=== PATIENT | female | born 1960 | race Caucasian/White ===

== ENCOUNTER 2020-03-24 11:06 | Outpatient (REF) | payer BC, SELFPAY ==
--- NOTE | 2020-03-24 | XR_ITS ---
EXAMINATION: XR CHEST 2 VIEWS CLINICAL INFORMATION: Chest pain, physical. COMPARISON: None. TECHNIQUE: PA and lateral radiographs of the chest were obtained. FINDINGS: No focal consolidation, pulmonary edema, or pleural effusion. The cardiomediastinal silhouette is normal. IMPRESSION: No acute cardiopulmonary disease.
[2020-03-24 11:58] LABS: MANUAL DIFF FLAG NO
[2020-03-24 12:01] LABS: Basophils Percent Auto 0.3 % (0-2); Eosinophils Absolute Auto 0.1 X10*3/uL (0.0-0.4); Eosinophils Percent Auto 0.7 % (0-4); Hematocrit 40.7 % (37-47); Hemoglobin 13.7 g/dl (12.0-16.0); Imm Gran Abs Auto 0.01 X10*3/uL (0.00-0.03); Imm Gran Pct Auto 0.1 % (0.0-0.4); Lymphocytes Absolute Auto 2.1 X10*3/uL (1.2-4.9); Lymphocytes Percent Auto 29.3 % (20-40); Mean Corpuscular HGB Conc 33.7 g/dl (31.0-35.0); Mean Corpuscular Hemoglobin 30.3 pg (27.0-33.0); Mean Platelet Volume 9.8 fL (9.4-12.3); Monocytes Absolute Auto 0.4 X10*3/uL (0.1-1.2); Monocytes Percent Auto 5.4 % (2-11); Neutrophils Absolute Auto 4.5 X10*3/uL (2.0-8.3); Neutrophils Percent Auto 64.2 % (45-73); Platelet Count 197 X10*3/uL (160-400); Red Blood Count 4.52 X10*6/uL (4.20-5.50); Red Cell Distribution Width 12.1 % (11.0-16.0)
[2020-03-24 12:28] LABS: Glucose Urine UA NEG (NEG); Leukocyte Esterase Urine NEG (NEG); Nitrite Urine NEG (NEG); PH 5.5 (5.0-8.0); Specific Gravity - Urine <= 1.005 (1.005-1.025); Urine Blood 2+ (NEG); Urine Ketones NEG (NEG); Urine Protein NEG (NEG-TRACE)
[2020-03-24 12:30] LABS: Appearance Urine CLEAR; Color Urine YELLOW
[2020-03-24 12:34] LABS: Squamous Epithelial Cell Urine TRACE /LPF; WBC Urine 0-2 /HPF (0-4)
--- NOTE | 2020-03-24 12:35 | XR_ITS ---
EXAMINATION: CHEST X-RAY CLINICAL INFORMATION: Chest pain COMPARISON: None TECHNIQUE: Two-view chest FINDINGS: The cardiac and mediastinal contours are normal. The lungs appear well inflated suggestive of COPD. The lungs are clear. There is no pleural effusion or pneumothorax. There is curvature of the thoracic spine to the right and degenerative change. IMPRESSION: Well-inflated lungs suggestive of COPD. No evidence for acute disease in the chest.
[2020-03-24 12:40] LABS: Alanine Aminotransferase 20 U/L (0-31); Albumin Level 4.6 g/dL (3.5-5.0); Alkaline Phosphatase 79 U/L (39-117); Anion Gap 11 (12-20); Aspartate Amino Transferase 31 U/L (5-31); Bilirubin Total 0.7 mg/dL (0.0-1.0); Blood Urea Nitrogen 12 mg/dL (9-16); Calcium 9.6 mg/dL (8.4-10.2); Carbon Dioxide 29 mmol/L (22-29); Chloride 106 mmol/L (96-108); Cholesterol 237 mg/dL; Estimated Glomerular Filt Rate > 60; Glucose Random 92 mg/dL (60-115); HDL Cholesterol 54 mg/dL; LDL Cholesterol Calculated 156 mg/dl; Potassium 5.2 mmol/l (3.3-5.1); Sodium 141 mmol/L (135-145); Total Protein 7.5 g/dL (6.5-8.0); Triglycerides 136 mg/dL
[2020-03-24 12:59] LABS: Thyroid Stimulating Hormone 1.85 mIU/mL (0.32-4.0)
== END 2020-03-24 11:07 | disposition home or self-care (01) ==
LOC: HO.LAB 11:06
PROVIDERS: PCP Internal Medicine; Visit Provider Internal Medicine
DX: R07.9 Chest pain, unspecified (principal); Z00.00 Encounter for general adult medical examination without abnormal findings; E78.00 Pure hypercholesterolemia, unspecified; G43.909 Migraine, unspecified, not intractable, without status migrainosus; N02.9 Recurrent and persistent hematuria with unspecified morphologic changes
CPT/HCPCS: 36415; 71046; 80053; 80061; 81001; 84443; 85025

== ENCOUNTER 2020-04-14 10:49 | Outpatient (REF) | payer BC, SELFPAY ==
--- NOTE | 2020-04-14 10:57 | US_ITS ---
EXAMINATION: US BREAST, BILATERAL CLINICAL INFORMATION: Heterogenously dense fibroglandular tissue. Bilateral breast ultrasound. COMPARISON: March 24, 2019 MAMMOGRAPHY: Previous mammogram dated August 31, 2019 was reviewed on a nondiagnostic monitor. TECHNIQUE: High-resolution grayscale sonography of the breasts was performed by a technologist with a high-frequency linear transducer following a standardized protocol. All 4 quadrants and the axilla were examined on each side. The retroareolar region was examined bilaterally FINDINGS: On the images submitted for review, no suspicious mass, area of architectural distortion, complex cyst or other sonographically suspicious lesion is identified in either breast. US/US breast RT complete IMPRESSION: No sonographic evidence of malignancy in either breast. ASSESSMENT: Right breast: BI-RADS 1 - negative.. Left breast: BI-RADS 1 - negative. RECOMMENDATIONS: Continue mammographic screening. This patient?s information was entered in to a reminder system with a target due date for their next mammogram.
--- NOTE | 2020-04-14 10:57 | US_ITS ---
EXAMINATION: US BREAST, BILATERAL CLINICAL INFORMATION: Heterogenously dense fibroglandular tissue. Bilateral breast ultrasound. COMPARISON: March 24, 2019 MAMMOGRAPHY: Previous mammogram dated August 31, 2019 was reviewed on a nondiagnostic monitor. TECHNIQUE: High-resolution grayscale sonography of the breasts was performed by a technologist with a high-frequency linear transducer following a standardized protocol. All 4 quadrants and the axilla were examined on each side. The retroareolar region was examined bilaterally FINDINGS: On the images submitted for review, no suspicious mass, area of architectural distortion, complex cyst or other sonographically suspicious lesion is identified in either breast. US/US breast LT complete IMPRESSION: No sonographic evidence of malignancy in either breast. ASSESSMENT: Right breast: BI-RADS 1 - negative.. Left breast: BI-RADS 1 - negative. RECOMMENDATIONS: Continue mammographic screening. This patient?s information was entered in to a reminder system with a target due date for their next mammogram.
== END 2020-04-14 10:50 | disposition home or self-care (01) ==
LOC: HO.MAMMO 10:49
PROVIDERS: PCP Internal Medicine; Visit Provider Obstetrics & Gynecology Obstetrics
DX: R92.2 Inconclusive mammogram (principal)
CPT/HCPCS: 76641

== ENCOUNTER → 2020-04-22 11:18 | Outpatient (REF) | payer BC, SELFPAY ==
--- NOTE | 2020-04-22 11:20 | ECG_ITS ---
Test Reason : UNSPEC CHEST PAIN Blood Pressure : / mmHG Vent. Rate : 071 BPM Atrial Rate : 071 BPM P-R Int : 132 ms QRS Dur : 084 ms QT Int : 374 ms P-R-T Axes : 054 067 058 degrees QTc Int : 406 ms Normal sinus rhythm Possible Early repolarization Otherwise normal ECG When compared with ECG of 27-JUN-2018 12:30, No significant change was found Referred By: Samy Toth Electronically Signed By:JOHANA GREEN MD
== END ==
LOC: HO.CARD 11:18
PROVIDERS: PCP Internal Medicine; Visit Provider Internal Medicine
DX: R07.9 Chest pain, unspecified (principal)
CPT/HCPCS: 93005

== ENCOUNTER → 2020-05-25 10:50 | Outpatient (BNVA) | payer BC, SELFPAY | PROVIDERS: PCP Internal Medicine; Referring Provider Internal Medicine; Visit Provider Urology | DX: Z76.89 Persons encountering health services in other specified circumstances (principal) ==

== ENCOUNTER 2020-09-05 08:47 | Outpatient (REF) | payer BC, SELFPAY ==
--- NOTE | ~2020-09-05 | MM_ITS ---
EXAMINATION: MM SCREENING DIGITAL BREAST TOMOSYNTHESIS, BILATERAL CLINICAL INFORMATION: Screening. Asymptomatic. The lifetime risk of breast cancer based on the Tyrer-Cuzick Model is 12%. COMPARISON: Mammography: 08/31/2019, 08/25/2018, 08/22/2017 TECHNIQUE: Digital breast tomosynthesis is performed in both the craniocaudal and mediolateral oblique views along with computer-aided detection (CAD). Synthesized 2D images are generated from the tomosynthesis. FINDINGS: The breasts are heterogeneously dense, which may obscure small masses (ACR BI-RADS breast composition Category c). There are no significant masses, abnormal calcifications, or other abnormalities. Parenchymal pattern is similar to prior studies. No significant changes. MM/MM tomosynthesis screening BI IMPRESSION: No mammographic evidence of malignancy. ASSESSMENT: BI-RADS 1: Negative RECOMMENDATION: Routine annual mammography screening. This patient's information was entered into a reminder system with a target due date for their next mammogram.
== END 2020-09-05 08:48 | disposition home or self-care (01) ==
LOC: HO.MAMMO 08:47
PROVIDERS: PCP Internal Medicine; Visit Provider Obstetrics & Gynecology Obstetrics
DX: Z12.31 Encounter for screening mammogram for malignant neoplasm of breast (principal)
CPT/HCPCS: 77063; 77067

== ENCOUNTER 2020-10-08 10:05 | Outpatient (REF) | payer BC, SELFPAY ==
--- NOTE | ~2020-10-08 | XR_ITS ---
EXAMINATION: XR CHEST CLINICAL INFORMATION: Chest pain COMPARISON: None TECHNIQUE: 2 views of the chest were obtained. FINDINGS: The lungs are well-expanded and clear of acute process. The heart size and pulmonary vascularity is normal. Mild dextro scoliosis of dorsal spine. No lytic process seen. XR/XR chest 2V IMPRESSION: Hyperinflated lungs without acute process.
== END 2020-10-08 10:06 | disposition home or self-care (01) ==
LOC: HO.XRAY 10:05
PROVIDERS: PCP Internal Medicine; Visit Provider Internal Medicine
DX: R07.9 Chest pain, unspecified (principal)
CPT/HCPCS: 71046

== ENCOUNTER 2020-11-01 09:34 | Outpatient (REF) | payer BC, SELFPAY ==
[2020-11-01 12:23] LABS: Alanine Aminotransferase 35 U/L (0-31); Albumin Level 4.2 g/dL (3.5-5.0); Alkaline Phosphatase 80 U/L (39-117); Anion Gap 13 (12-20); Aspartate Amino Transferase 35 U/L (5-31); Blood Urea Nitrogen 11 mg/dL (9-16); Calcium 9.1 mg/dL (8.4-10.2); Carbon Dioxide 28 mmol/L (22-29); Chloride 103 mmol/L (96-108); Cholesterol 178 mg/dL; Estimated Glomerular Filt Rate > 60; Glucose Random 88 mg/dL (60-115); HDL Cholesterol 39 mg/dL; LDL Cholesterol Calculated 119 mg/dl; Potassium 4.1 mmol/L (3.3-5.1); Sodium 140 mmol/L (135-145); Total Protein 6.6 g/dL (6.5-8.0); Triglycerides 103 mg/dL
== END 2020-11-01 09:35 | disposition home or self-care (01) ==
LOC: HO.WFDLDS 09:34
PROVIDERS: Visit Provider Internal Medicine
DX: Z00.00 Encounter for general adult medical examination without abnormal findings (principal); R07.9 Chest pain, unspecified; N02.9 Recurrent and persistent hematuria with unspecified morphologic changes; E78.00 Pure hypercholesterolemia, unspecified; G43.909 Migraine, unspecified, not intractable, without status migrainosus
CPT/HCPCS: 36415; 80053; 80061

== ENCOUNTER 2021-04-13 10:13 | Outpatient (REF) | payer BC, SELFPAY ==
[2021-04-13 10:26] LABS: MANUAL DIFF FLAG NO; Urine Cytology See Pathology rpt
[2021-04-13 10:53] LABS: Basophils Percent Auto 0.4 % (0-2); Eosinophils Absolute Auto 0.1 X10*3/uL (0.0-0.4); Eosinophils Percent Auto 1.3 % (0-4); Hemoglobin 13.6 g/dl (12.0-16.0); Imm Gran Abs Auto 0.01 X10*3/uL (0.00-0.03); Imm Gran Pct Auto 0.2 % (0.0-0.4); Lymphocytes Absolute Auto 1.3 X10*3/uL (1.2-4.9); Lymphocytes Percent Auto 28.6 % (20-40); Mean Corpuscular Hemoglobin 30.7 pg (27.0-33.0); Mean Corpuscular Volume 90.3 fL (80-98); Mean Platelet Volume 10.1 fL (9.4-12.3); Monocytes Absolute Auto 0.3 X10*3/uL (0.1-1.2); Monocytes Percent Auto 5.6 % (2-11); Neutrophils Percent Auto 63.9 % (45-73); Platelet Count 205 X10*3/uL (160-400); Red Blood Count 4.43 X10*6/uL (4.20-5.50); Red Cell Distribution Width 11.9 % (11.0-16.0); White Blood Count 4.6 X10*3/uL (4.8-10.8)
[2021-04-13 11:16] LABS: Appearance Urine HAZY; Color Urine YELLOW; Glucose Urine UA NEG (NEG); Leukocyte Esterase Urine TRACE (NEG); Nitrite Urine NEG (NEG); PH 5.5 (5.0-8.0); Specific Gravity - Urine >= 1.030 (1.005-1.025); Urine Blood 2+ (NEG); Urine Ketones NEG (NEG); Urine Protein NEG (NEG-TRACE)
[2021-04-13 11:20] LABS: Alanine Aminotransferase 29 U/L (0-31); Albumin Level 4.5 g/dL (3.5-5.0); Alkaline Phosphatase 99 U/L (39-117); Anion Gap 10 (12-20); Aspartate Amino Transferase 32 U/L (5-31); Bilirubin Total 0.8 mg/dL (0.0-1.0); Blood Urea Nitrogen 14 mg/dL (9-16); Calcium 9.8 mg/dL (8.4-10.2); Carbon Dioxide 30 mmol/L (22-29); Chloride 104 mmol/L (96-108); Cholesterol 202 mg/dL; Estimated Glomerular Filt Rate > 60; Glucose Random 91 mg/dL (60-115); HDL Cholesterol 43 mg/dL; LDL Cholesterol Calculated 135 mg/dl; Potassium 4.6 mmol/L (3.3-5.1); Sodium 139 mmol/L (135-145); Total Protein 7.3 g/dL (6.5-8.0); Triglycerides 122 mg/dL
[2021-04-13 11:45] LABS: Free T4 (Free Thyroxine) 1.12 ng/dL (0.71-1.85); Thyroid Stimulating Hormone 1.85 uIU/mL (0.32-4.0); Vitamin D 25-OH Total 49.9 ng/mL (>30)
[2021-04-13 11:58] LABS: Folate > 20.0 ng/mL (> or = 4.0); Vitamin B12 923 pg/mL (200-900)
[2021-04-13 12:19] LABS: Mucus Urine 3+ /LPF; Squamous Epithelial Cell Urine 1+ /LPF
== END 2021-04-13 10:14 | disposition home or self-care (01) ==
LOC: HO.LAB 10:13
PROVIDERS: PCP Internal Medicine; Visit Provider Internal Medicine
DX: E78.00 Pure hypercholesterolemia, unspecified (principal); R31.29 Other microscopic hematuria
CPT/HCPCS: 36415; 80053; 80061; 81001; 82306; 82607; 82746; 84439; 84443; 85025; 88112

== ENCOUNTER 2021-05-03 09:29 | Outpatient (REF) | payer BC, SELFPAY ==
--- NOTE | ~2021-05-03 | US_ITS ---
EXAMINATION: US BREAST, right CLINICAL INFORMATION: Heterogenously dense fibroglandular tissue. Right breast ultrasound. COMPARISON: April 14, 2020 and March 24, 2019 MAMMOGRAPHY: Previous mammogram dated September 05, 2020 was reviewed on a nondiagnostic monitor. TECHNIQUE: High-resolution grayscale sonography of the breasts was performed by a technologist with a high-frequency linear transducer following a standardized protocol. All 4 quadrants and the axilla were examined. The retroareolar region was examined. FINDINGS: On the images submitted for review, no suspicious mass, area of architectural distortion, complex cyst or other sonographically suspicious lesion is identified. US/US breast RT complete IMPRESSION: No sonographic evidence of malignancy in the right breast. ASSESSMENT: Right breast: BI-RADS 1 - negative.. RECOMMENDATIONS: Continue mammographic screening. This patient?s information was entered in to a reminder system with a target due date for their next mammogram.
--- NOTE | ~2021-05-03 | US_ITS ---
EXAMINATION: US BREAST, left CLINICAL INFORMATION: Heterogenously dense fibroglandular tissue. Left breast ultrasound. COMPARISON: April 14, 2020 and March 24, 2019 MAMMOGRAPHY: Previous mammogram dated September 05, 2020 was reviewed on a nondiagnostic monitor. TECHNIQUE: High-resolution grayscale sonography of the breasts was performed by a technologist with a high-frequency linear transducer following a standardized protocol. All 4 quadrants and the axilla were examined. The retroareolar region was examined. FINDINGS: On the images submitted for review, no suspicious mass, area of architectural distortion, complex cyst or other sonographically suspicious lesion is identified. US/US breast LT complete IMPRESSION: No sonographic evidence of malignancy in the left breast. ASSESSMENT: Left breast: BI-RADS 1 - negative. RECOMMENDATIONS: Continue mammographic screening. This patient?s information was entered in to a reminder system with a target due date for their next mammogram.
--- NOTE | ~2021-05-03 | MM_ITS ---
EXAMINATION: BONE DENSITOMETRY CLINICAL INDICATION: Other specified disorders of bone density and structure. COMPARISON: Previous BD dated 03/24/2019 and baseline BD dated 10/28/2014. TECHNIQUE: Using a [employer] DXA System (software version: 13.1) manufactured by [employer], dual-energy x-ray absorptiometry was performed of the lumbar spine and left hip. The images are of good technical quality. Summary results are attached. FINDINGS: AP SPINE L1-L4: Current: BMD 0.876 g/cm2, Z-score -1.2, T-score -2.5, osteoporosis, 2.6% decrease from previous, 14.3% decrease from baseline (<5% change is not significant). Prior: BMD 0.899 g/cm2. Baseline: BMD 1.022 g/cm2. LEFT FEMUR, NECK: Current: BMD 0.813 g/cm2, Z-score -0.3, T-score -1.6, osteopenia. Prior: BMD 0.875 g/cm2. Baseline: BMD 0.925 g/cm2. LEFT FEMUR, TOTAL: Current: BMD 0.774 g/cm2, Z-score -0.8, T-score -1.9, osteopenia, 5.5% decrease from previous, 12.1% decrease from baseline (<5% change is not significant). Prior: BMD 0.819 g/cm2. Baseline: BMD 0.881 g/cm2. IDENTIFIED RISK FACTORS: Menopause, hysterectomy, bilateral oophorectomy, family history (parental hip fracture). HISTORY OF FRACTURE: None listed. MEDICATIONS: Multivitamin. MM/XR DEXA axial skeleton IMPRESSION: 1. DIAGNOSIS: Osteoporosis based on the lowest T-score value of -2.5 in the lumbar spine applying World Health Organization criteria. 2. 10-YEAR FRACTURE RISK PREDICTION, FRAX: Major osteoporotic fracture (clinical spine, forearm, hip or shoulder) 14.1%. Hip fracture 0.8%. 3. Treatment Recommendations: NOF guidelines recommend consideration for treatment in postmenopausal women and men age 50 and older presenting with the following: -A hip or vertebral (clinical or morphometric) fracture. -T-score less than or equal to -2.5 at the femoral neck or spine after appropriate evaluation to exclude secondary causes. -Low bone mass at the hip or spine and a 10-year fracture probability by FRAX of greater than or equal to 3% for hip fracture or greater than or equal to 20% for major osteoporotic fracture based on the [place] adapted WHO algorithm. 4. Other Recommendations: All treatment decisions require clinical judgment and consideration of individual patient factors, including patient preferences, comorbidities, previous drug use, risk factors not captured in the FRAX model (e.g. frailty, falls, vitamin D deficiency, increased bone turnover, interval significant decline in bone density) and possible under or overestimation of fracture risk by FRAX. Additional medical evaluation for secondary cause of low bone mineral density may be appropriate. FUTURE SCAN RECOMMENDATION: People with diagnosed cases of osteoporosis or at high risk for fracture should have regular bone mineral density tests. For patients eligible for Medicare, routine testing is allowed once every 2 years. The testing frequency can be increased to one year for patients who have rapidly progressing disease, those who are receiving or discontinuing medical therapy to restore bone mass, or have additional risk factors.
== END 2021-05-03 09:30 | disposition home or self-care (01) ==
LOC: HO.MAMMO 09:29
PROVIDERS: Absent Provider Obstetrics & Gynecology; PCP Internal Medicine; Visit Provider Internal Medicine
DX: Z13.820 Encounter for screening for osteoporosis (principal); R92.2 Inconclusive mammogram; M85.80 Other specified disorders of bone density and structure, unspecified site; Z78.0 Asymptomatic menopausal state; Z98.890 Other specified postprocedural states; Z90.722 Acquired absence of ovaries, bilateral; Z79.899 Other long term (current) drug therapy
CPT/HCPCS: 76641; 77080

== ENCOUNTER 2021-09-06 08:57 | Outpatient (REF) | payer BC, SELFPAY ==
--- NOTE | ~2021-09-06 | MM_ITS ---
EXAMINATION: MM SCREENING DIGITAL BREAST TOMOSYNTHESIS, BILATERAL CLINICAL INFORMATION: Screening. Asymptomatic. The lifetime risk of breast cancer based on the Tyrer-Cuzick Model is 13%. COMPARISON: Mammography: 09/05/2020, 08/31/2019, 08/25/2018 TECHNIQUE: Digital breast tomosynthesis is performed in both the craniocaudal and mediolateral oblique views along with computer-aided detection (CAD). Synthesized 2D images are generated from the tomosynthesis. FINDINGS: The breasts are heterogeneously dense, which may obscure small masses (ACR BI-RADS breast composition Category c). There are no significant masses, abnormal calcifications, or other abnormalities. Parenchymal pattern is similar to prior studies. There is no developing density or architectural abnormality. The axilla and skin contours are unremarkable. No significant changes. MM/MM tomosynthesis screening BI IMPRESSION: No mammographic evidence of malignancy. ASSESSMENT: BI-RADS 1: Negative RECOMMENDATION: Routine annual mammography screening. This patient's information was entered into a reminder system with a target due date for their next mammogram.
== END 2021-09-06 08:58 | disposition home or self-care (01) ==
LOC: HO.MAMMO 08:57
PROVIDERS: PCP Internal Medicine; Visit Provider Obstetrics & Gynecology Obstetrics
DX: Z12.31 Encounter for screening mammogram for malignant neoplasm of breast (principal)
CPT/HCPCS: 77063; 77067

== ENCOUNTER 2022-02-16 09:19 | Outpatient (REF) | payer BC, SELFPAY ==
[2022-02-16 11:21] LABS: MANUAL DIFF FLAG NO
[2022-02-16 11:37] LABS: Basophils Percent Auto 0.4 % (0-2); Eosinophils Absolute Auto 0.1 X10*3/uL (0.0-0.4); Eosinophils Percent Auto 1.1 % (0-4); Hemoglobin 13.9 g/dl (12.0-16.0); Imm Gran Abs Auto 0.01 X10*3/uL (0.00-0.03); Imm Gran Pct Auto 0.2 % (0.0-0.4); Lymphocytes Absolute Auto 1.5 X10*3/uL (1.2-4.9); Lymphocytes Percent Auto 31.1 % (20-40); Mean Corpuscular HGB Conc 33.9 g/dl (31.0-35.0); Mean Corpuscular Volume 88.6 fL (80.0-98.0); Mean Platelet Volume 10.5 fL (9.4-12.3); Monocytes Absolute Auto 0.3 X10*3/uL (0.1-1.2); Monocytes Percent Auto 5.5 % (2-11); Neutrophils Absolute Auto 2.9 x10*3/uL (2.0-8.3); Neutrophils Percent Auto 61.7 % (45-73); Platelet Count 191 X10*3/uL (160-400); Red Blood Count 4.63 X10*6/uL (4.20-5.50); White Blood Count 4.7 X10*3/uL (4.8-10.8)
[2022-02-16 12:29] LABS: Folate > 20.0 ng/mL (> or = 4.0); Vitamin B12 693 pg/mL (200-900)
[2022-02-16 12:39] LABS: Alanine Aminotransferase 17 U/L (0-31); Albumin Level 4.4 g/dL (3.5-5.0); Alkaline Phosphatase 85 U/L (39-117); Anion Gap 14 (12-20); Aspartate Amino Transferase 25 U/L (5-31); Bilirubin Total 0.7 mg/dL (0.0-1.0); Blood Urea Nitrogen 10 mg/dL (9-16); Calcium 9.3 mg/dL (8.4-10.2); Carbon Dioxide 27 mmol/L (22-29); Chloride 106 mmol/L (96-108); Cholesterol 195 mg/dL; Estimated Glomerular Filt Rate > 60; Glucose Random 93 mg/dL (60-115); HDL Cholesterol 47 mg/dL; LDL Cholesterol Calculated 127 mg/dl; Potassium 4.2 mmol/L (3.3-5.1); Sodium 143 mmol/L (135-145); Total Protein 7.1 g/dL (6.5-8.0); Triglycerides 109 mg/dL
[2022-02-16 13:03] LABS: Free T4 (Free Thyroxine) 1.07 ng/dL (0.71-1.85); Thyroid Stimulating Hormone 2.06 uIU/mL (0.32-4.0); Vitamin D 25-OH Total 41.1 ng/mL (>30)
== END 2022-02-16 09:20 | disposition home or self-care (01) ==
LOC: HO.WFDLDS 09:19
PROVIDERS: Visit Provider Internal Medicine
DX: E78.00 Pure hypercholesterolemia, unspecified (principal)
CPT/HCPCS: 36415; 80053; 80061; 82306; 82607; 82746; 84439; 84443; 85025

== ENCOUNTER 2022-03-01 08:42 | Outpatient (REF) | payer BC, SELFPAY ==
--- NOTE | ~2022-03-01 | US_ITS ---
EXAMINATION: US RETROPERITONEAL COMPLETE (RENAL) CLINICAL INFORMATION: Left lower quadrant pain. COMPARISON: CT abdomen and pelvis 08/01/2017. X-ray abdomen KUB 06/06/2017. TECHNIQUE: Real-time imaging of the kidneys and bladder. FINDINGS: RIGHT KIDNEY: 10.4 x 3.7 x 5.3 cm (SAG x AP x TRV). The kidney is normal in size, contour, and echogenicity. Renal cortical thickness is normal. No focal parenchymal lesions or hydronephrosis. There is an echogenic stone lower pole measuring 0.2 x 0.4 x 0.2 CM LEFT KIDNEY: 11.0 x 3.5 x 5.4 cm (SAG x AP x TRV). The kidney is normal in size, contour, and echogenicity. Renal cortical thickness is normal. No calculi or focal parenchymal lesions. No hydronephrosis. There is trace upper pole caliectasis. BLADDER: Well distended and normal. Bilateral ureteral jets are demonstrated. Prevoid bladder volume is 191 mL. Postvoid bladder volume is 17 mL. US/US retroperitoneal comp IMPRESSION: Echogenic stone lower pole right kidney measuring 0.2 x 0.4 x 0.2 cm. There is no caliectasis or hydronephrosis. Minimal trace upper pole caliectasis left kidney but no echogenic calculi or hydronephrosis.
== END 2022-03-01 08:43 | disposition home or self-care (01) ==
LOC: HO.HMGCX 08:42
PROVIDERS: PCP Internal Medicine; Visit Provider Internal Medicine
DX: R10.32 Left lower quadrant pain (principal)
CPT/HCPCS: 76770

== ENCOUNTER 2022-04-20 09:30 | Outpatient (REF) | payer BC, SELFPAY ==
[2022-04-20 11:54] LABS: Appearance Urine Clear; Color Urine Yellow; Glucose Urine UA Negative (Negative); Leukocyte Esterase Urine Negative (Negative); Nitrite Urine Negative (Negative); Specific Gravity - Urine <= 1.005 (1.005-1.025); UMIC TRIGGER UA YES; Urine Blood Small (1+) (Negative); Urine Ketones Negative (Negative); Urine Protein Negative (Neg-Trace)
[2022-04-20 12:21] LABS: Bacteria Urine None Seen (None Seen); Hyaline Casts Urine 0-2 /LPF (0-2); RBC Urine 0-2 /HPF (0-2); Squamous Epithelial Cell Urine 0-2 /HPF (0-2); WBC Urine 0-5 /HPF (0-5)
[2022-04-23 21:27] LABS: Alpha 1 Anti-trypsin 136 mg/dL (83-199)
== END 2022-04-20 09:31 | disposition home or self-care (01) ==
LOC: HO.WFDLDS 09:30
PROVIDERS: Visit Provider Internal Medicine
DX: N20.0 Calculus of kidney (principal)
CPT/HCPCS: 36415; 81001; 82103

== ENCOUNTER 2022-05-30 11:36 | Outpatient (REF) | payer BC, SELFPAY ==
--- NOTE | ~2022-05-30 | US_ITS ---
EXAMINATION: US SCREENING ULTRASOUND BREAST, BILATERAL CLINICAL INFORMATION: Dense breasts on mammography. Screening ultrasound. Tyrer-Cuzick Score 13%. COMPARISON: Digital breast tomosynthesis 09/06/2021, bilateral screening breast ultrasound 05/03/2021 TECHNIQUE: Ultrasound is performed using grayscale imaging and color Doppler. Imaging is performed to include the four quadrants and retroareolar region. Both breasts are imaged. FINDINGS: Right breast: There is no suspicious finding by ultrasound. There is no cystic or solid mass or focal architectural abnormality. Left breast: There is no suspicious finding by ultrasound. There is no cystic or solid mass or focal architectural abnormality. US/US breast LT complete IMPRESSION: Normal study ASSESSMENT: BI-RADS 1: Negative RECOMMENDATION: Routine annual mammography screening. This patient's information was entered into a reminder system with a target due date for their next mammogram.
--- NOTE | ~2022-05-30 | US_ITS ---
EXAMINATION: US SCREENING ULTRASOUND BREAST, BILATERAL CLINICAL INFORMATION: Dense breasts on mammography. Screening ultrasound. Tyrer-Cuzick Score 13%. COMPARISON: Digital breast tomosynthesis 09/06/2021, bilateral screening breast ultrasound 05/03/2021 TECHNIQUE: Ultrasound is performed using grayscale imaging and color Doppler. Imaging is performed to include the four quadrants and retroareolar region. Both breasts are imaged. FINDINGS: Right breast: There is no suspicious finding by ultrasound. There is no cystic or solid mass or focal architectural abnormality. Left breast: There is no suspicious finding by ultrasound. There is no cystic or solid mass or focal architectural abnormality. US/US breast RT complete IMPRESSION: Normal study ASSESSMENT: BI-RADS 1: Negative RECOMMENDATION: Routine annual mammography screening. This patient's information was entered into a reminder system with a target due date for their next mammogram.
== END 2022-05-30 11:37 | disposition home or self-care (01) ==
LOC: HO.MAMMO 11:36
PROVIDERS: PCP Internal Medicine; Visit Provider Obstetrics & Gynecology
DX: R92.2 Inconclusive mammogram (principal); Z80.3 Family history of malignant neoplasm of breast
CPT/HCPCS: 76641

== ENCOUNTER 2022-09-07 10:15 | Outpatient (REF) | payer BC, SELFPAY ==
--- NOTE | ~2022-09-07 | MM_ITS ---
EXAMINATION: MM SCREENING DIGITAL BREAST TOMOSYNTHESIS, BILATERAL CLINICAL INFORMATION: Screening. Asymptomatic. The lifetime risk of breast cancer based on the Tyrer-Cuzick Model is 11%. COMPARISON: Mammography: 09/06/2021, 09/05/2020, 08/31/2019, bilateral screening breast ultrasound 05/30/2022, 05/03/2021 TECHNIQUE: Digital breast tomosynthesis is performed in both the craniocaudal and mediolateral oblique views along with computer-aided detection (CAD). Synthesized 2D images are generated from the tomosynthesis. FINDINGS: The breasts are heterogeneously dense, which may obscure small masses (ACR BI-RADS breast composition Category c). There are no significant masses, abnormal calcifications, or other abnormalities. Parenchymal pattern is similar to prior studies. There is no developing density or architectural abnormality. The axilla and skin contours are unremarkable. No significant changes. MM/MM tomosynthesis screening BI IMPRESSION: No mammographic evidence of malignancy. ASSESSMENT: BI-RADS 1: Negative RECOMMENDATION: Routine annual mammography screening. This patient's information was entered into a reminder system with a target due date for their next mammogram.
== END 2022-09-07 10:16 | disposition home or self-care (01) ==
LOC: HO.MAMMO 10:15
PROVIDERS: PCP Internal Medicine; Visit Provider Internal Medicine
DX: Z12.31 Encounter for screening mammogram for malignant neoplasm of breast (principal)
CPT/HCPCS: 77063; 77067

== ENCOUNTER 2022-09-19 11:18 | Outpatient (REF) | payer BC, SELFPAY ==
--- NOTE | ~2022-09-19 | US_ITS ---
EXAMINATION: US RETROPERITONEAL LIMITED (RENAL ONLY) CLINICAL INFORMATION: Calculus of kidney. COMPARISON: Ultrasound retroperitoneal complete (renal) 03/01/2022. CT abdomen and pelvis 08/01/2017. X-ray abdomen KUB 06/06/2017. TECHNIQUE: Real-time imaging of the kidneys. FINDINGS: RIGHT KIDNEY: 9.8 x 4.2 x 5.5 cm (SAG x AP x TRV). The kidney is normal in size, contour, and echogenicity. Renal cortical thickness is normal. No focal parenchymal lesions or hydronephrosis. There is an echogenic stone midpole measuring 0.24 x 0.24 x 0.20 cm and 0.19 x 0.30 x 0.28 cm. There is no caliectasis. LEFT KIDNEY: 10.3 x 5.2 x 4.7 cm (SAG x AP x TRV). The kidney is normal in size, contour, and echogenicity. Renal cortical thickness is normal. No calculi or focal parenchymal lesions. No hydronephrosis. US/US renal BI IMPRESSION: 1. Nonobstructive echogenic stones midpole right kidney. Only one echogenic calculi was seen in the mid to lower pole, right kidney, on the previous exam. 2. The left kidney is unremarkable.
== END 2022-09-19 11:19 | disposition home or self-care (01) ==
LOC: HO.HMGCX 11:18
PROVIDERS: PCP Internal Medicine; Visit Provider Internal Medicine
DX: N20.0 Calculus of kidney (principal)
CPT/HCPCS: 76775

== ENCOUNTER 2023-02-15 11:47 | Outpatient (AMB) | payer BC, SELFPAY ==
--- NOTE | 2023-02-15 11:47 | A.OFFPC_ITS ---
Intake Visit Reasons: Head Cold, tested Pos for COVID 02/05 Intake Note: 02/04 patient started with congestion, headache, sore throat but no fever and tested for COVID in the AM and PM and both test were negative. 02/05 she tested herself again and tested positive and called the office and was prescribed the Paxlovid. 02/10 she finished the antibiotics and felt fine but now it seems the symptoms are coming back. Allergies codeine [CODEINE] Allergy (Unknown, Verified 02/15/23 11:52) SEVERE HEADACHE Tobacco use date assessed: 10/18/22 Dental Screening Dental Screen Date: 02/15/23 Did you have a dental visit in the last 12 months?: Yes Did you have a dental problem in the last 6 months where you did not have access to dental care?: No Was dental information given to patient?: Patient has dentist HPI HPI Comments History of Present Illness Details 62-year-old female past medical history significant for osteoporosis, hypercholesteremia and migraines. Patient presents today for a telehealth appointment. Patient started with symptoms of sore throat, Head cold/ nasal congestion, Headache on 02/04, patient then tested positive for COVID on 02/05/2023. And patient was treated with Paxlovid finished 02/10/23. Patient initially reported that she felt like her symptoms were improving but now they seem to be returning. Patient states Saturday had rebound of her symptoms started mild intermittent headache which is relieved by Tylenol, mild nasal congestion nasal congestion and watery eyes. Patient denies sob diff breathing, reports occasional cough. [facility]LY [facility] Medical History (Updated 02/05/23 @ 17:19 by Samy Toth MD) Hypercholesterolemia Migraine Osteopenia Surgical History (Updated 02/02/22 @ 17:13 by Samy Toth MD) History of hysterectomy History of laparotomy Hx of appendectomy Family History (Updated 10/18/22 @ 09:48 by Livier Tiwari CMA) Father Diabetes Hypertension Skin cancer Mother Hypertension Skin cancer Brother No problems noted. Brother No problems noted. Social History (Updated 04/19/22 @ 10:39 by Samy Toth MD) Housing: House Alcohol intake: never Patient Tobacco Use Status: Never used Tobacco e-Cigarette/Vaping Use: Never Used service: No Current occupational status: employed Cognitive needs: No Hearing needs: No Vision needs: Yes Questionnaire PHQ-9 Over the last 2 weeks, how often have you been bothered by any of the following problems? 1. Little interest or pleasure in doing things: not at all 2. Feeling down, depressed, or hopeless: not at all 3. Trouble falling or staying asleep, or sleeping too much: not at all 4. Feeling tired or having little energy: not at all 5. Poor appetite or overeating: not at all 6. Feeling bad about yourself - or that you are a failure or have let yourself or your family down: not at all 7. Trouble concentrating on things, such as reading the newspaper or watching television: not at all 8. Moving or speaking so slowly that other people could have noticed. Or the opposite - being so fidgety or restless that you have been moving around a lot more than usual: not at all 9. Thoughts that you would be better off or of hurting yourself in some way: not at all Total score: 0 Depression Screening Interpretation: Negative Source: Developed by Drs. Alverto Begum, Flor Welch, Thang Richter and colleagues, with an educational eileen from [employer]. Thrive Questionnaire Date Thrive assessed: 10/18/22 AUDIT C Alcohol Use Questionnaire (AUDIT-C) 1. How often do you have a drink containing alcohol?: Monthly or less 2. How many drinks containing alcohol do you have on a typical day when you are drinking?: 1 or 2 3. How often do you have six or more drinks on one occasion?: Never Total Score: 1 BIGG-7 AMB Questionnaire BIGG-7 Date BIGG - 7 assessed: 10/18/22 Source: Developed by Drs. Alverto Begum, Thang Hewitt and colleagues, with an educational eileen from [employer]. Review of Systems Const Reports chills and Denies fever(s) Eyes Reports other (tearing ) ENT Reports nasal congestion, Denies sinus pain, Denies sinus pressure and Denies sore throat Card Reports no additional complaints Resp Reports no additional complaints and Reports cough (Occasional nonproductive cough. ) Physical exam (Primary Care) Vital Signs: Unable to complete physical exam,telehealth appointment. Tobacco/Smoking Status: Tobacco use Status Tobacco use date assessed 10/18/22 02/15/23 11:50 Patient Tobacco Use Status Never used Tobacco 02/15/23 11:50 e-Cigarette/Vaping Use Never Used 02/15/23 11:50 PHQ-9: PHQ-9 Score PHQ-9: Total score 0 02/15/23 11:53 Depression Screening Interpretation: Negative Thrive Assessment: Date of Thrive Assessment Date Thrive assessed 10/18/22 02/15/23 11:50 Telehealth Telehealth Location of provider rendering services: practice address Location of patient: address on file Patient Identification confirmed using: Name, : Yes Telehealth method: voice only Patient verbally consented to treatment: Yes Patient verbally consented to billing insurance company: Yes Patient informed of any privacy concerns related to visit: Yes Assessment and Plan Assessment & Plan (1) COVID-19 virus infection: Comment: 02/05/2023 Code(s): U07.1 - COVID-19 Plan: Patient reporting rebound symptoms after discontinuing Paxlovid. Patient advised to stay hydrated and rest can take [id number] Tylenol as needed for intermittent headache. Patient advised to call office or follow-up with PCP if she develops worsening sinus pain or pressure, yellow-green nasal congestion and fevers. Patient also reported fine pink itchy rash to bilateral thighs and abdomen after discontinuing Paxlovid, which was resolved by applying lotion. Patient advised to follow-up if any new or worsening rash. Patitent advised to mask for 10 days following testing positive Plan Keep scheduled follow up or follow up sooner if needed. Coding Level of Care Code Est Pt Level 3 (00461) Diagnoses COVID-19 virus infection U07.1
== END 2023-02-15 12:47 | disposition home or self-care (01) ==
PROVIDERS: PCP Internal Medicine; Visit Provider Nurse Practitioner Family
DX: U07.1 COVID-19 (principal)
CPT/HCPCS: 99213

== ENCOUNTER 2023-03-28 08:02 | Outpatient (REF) | payer BC, SELFPAY ==
[2023-03-28 10:56] LABS: MANUAL DIFF FLAG NO
[2023-03-28 11:17] LABS: Basophils Percent Auto 0.5 % (0-2); Eosinophils Absolute Auto 0.1 X10*3/uL (0.0-0.4); Eosinophils Percent Auto 1.2 % (0-4); Hematocrit 38.4 % (37.0-47.0); Hemoglobin 12.6 g/dl (12.0-16.0); Imm Gran Abs Auto 0.01 X10*3/uL (0.00-0.03); Imm Gran Pct Auto 0.2 % (0.0-0.4); Lymphocytes Absolute Auto 1.2 X10*3/uL (1.2-4.9); Mean Corpuscular HGB Conc 32.8 g/dl (31.0-35.0); Mean Corpuscular Hemoglobin 29.8 pg (27.0-33.0); Mean Corpuscular Volume 90.8 fL (80.0-98.0); Mean Platelet Volume 10.4 fL (9.4-12.3); Monocytes Absolute Auto 0.3 X10*3/uL (0.1-1.2); Neutrophils Absolute Auto 2.6 x10*3/uL (2.0-8.3); Neutrophils Percent Auto 62.1 % (45-73); Platelet Count 197 X10*3/uL (160-400); Red Blood Count 4.23 X10*6/uL (4.20-5.50); Red Cell Distribution Width 12.2 % (11.0-16.0); White Blood Count 4.2 X10*3/uL (4.8-10.8)
[2023-03-28 11:44] LABS: Alanine Aminotransferase 16 U/L (0-31); Albumin Level 4.1 g/dL (3.5-5.0); Alkaline Phosphatase 56 U/L (39-117); Anion Gap 15 (12-20); Aspartate Amino Transferase 25 U/L (5-31); Bilirubin Total 0.7 mg/dL (0.0-1.0); Blood Urea Nitrogen 12 mg/dL (9-16); Carbon Dioxide 23 mmol/L (22-29); Chloride 102 mmol/L (96-108); Cholesterol 210 mg/dL (<200); Estimated Glomerular Filt Rate > 60; Glucose Random 86 mg/dL (60-115); HDL Cholesterol 44 mg/dL (>40); LDL Cholesterol Calculated 144 mg/dL (<100); Potassium 4.2 mmol/L (3.3-5.1); Sodium 136 mmol/L (135-145); Total Protein 6.9 g/dL (6.5-8.0); Triglycerides 110 mg/dL (<150); Uric Acid 2.9 mg/dL (2.4-5.7)
[2023-03-28 11:53] LABS: Free T4 (Free Thyroxine) 1.01 ng/dL (0.71-1.85); Thyroid Stimulating Hormone 1.81 uIU/mL (0.32-4.0); Vitamin D 25-OH Total 49.3 ng/mL (>30)
== END 2023-03-28 08:03 | disposition home or self-care (01) ==
LOC: HO.WFDLDS 08:02
PROVIDERS: Visit Provider Internal Medicine
DX: E78.00 Pure hypercholesterolemia, unspecified (principal); M81.0 Age-related osteoporosis without current pathological fracture
CPT/HCPCS: 36415; 80053; 80061; 82306; 82607; 82746; 84439; 84443; 84550; 85025

== ENCOUNTER 2023-04-22 13:14 | Outpatient (AMB) | payer BC, SELFPAY ==
[2023-04-22 13:28] VITALS: BP 112/68; PULSE 78; O2SAT 100; BMI 20.5
--- NOTE | 2023-04-22 13:28 | A.OFFPC_ITS ---
Vital Signs 04/22/23 13:28 Height 5 ft 6 in Weight 127 lb 0.6 oz BMI 20.5 BP 112/68 Blood Pressure Location Lt brachial Position Sitting Pulse 78 Pulse Source Pulse Oximeter Pulse Oximetry (%) 100 Oxygen Delivery Method Room Air Intake Visit Reasons: PHYSICAL Lead C Developer Required: No Allergies codeine [CODEINE] Allergy (Unknown, Verified 04/22/23 13:29) SEVERE HEADACHE Medication List - Last Reconciled 04/22/23 by Samy Toth MD alendronate (Fosamax) 70 mg PO QWEEK 30 days aspirin 325 mg PO DAILY PRN sqdhcga-enpjerkrmjgsm-qvgfqgne 250-250-65 mg (Excedrin Migraine) 1 tab PO Q4-6H PRN cetirizine (Zyrtec) 10 mg PO DAILY coQ10 (ubiquinol) (Qunol Alireza CoQ10) 100 mg PO BID multivitamin,tx-minerals 1 tab PO DAILY Tobacco use date assessed: 04/22/23 Dental Screening Dental Screen Date: 04/22/23 Did you have a dental visit in the last 12 months?: Yes Did you have a dental problem in the last 6 months where you did not have access to dental care?: No Was dental information given to patient?: Patient has dentist HPI PHYSICAL HPI Details 62-year-old female with a history of denisa julieta, hypercholesterol E osteoporosis nephrolithiasis coming in for physical exam last seen in January 2023 regarding the COVID infection [facility] Medical History (Updated 02/05/23 @ 17:19 by Samy Toth MD) Osteopenia Hypercholesterolemia Migraine Surgical History (Updated 02/02/22 @ 17:13 by Samy Toth MD) Hx of appendectomy History of hysterectomy History of laparotomy Family History (Updated 10/18/22 @ 09:48 by Liveir Tiwari CMA) Father Diabetes Hypertension Skin cancer Mother Hypertension Skin cancer Brother No problems noted. Brother No problems noted. Social History (Updated 04/19/22 @ 10:39 by Samy Toth MD) Housing: House Alcohol intake: never Patient Tobacco Use Status: Never used Tobacco e-Cigarette/Vaping Use: Never Used service: No Current occupational status: employed Cognitive needs: No Hearing needs: No Vision needs: Yes Questionnaire PHQ-9 Over the last 2 weeks, how often have you been bothered by any of the following problems? 1. Little interest or pleasure in doing things: not at all 2. Feeling down, depressed, or hopeless: not at all 3. Trouble falling or staying asleep, or sleeping too much: not at all 4. Feeling tired or having little energy: not at all 5. Poor appetite or overeating: not at all 6. Feeling bad about yourself - or that you are a failure or have let yourself or your family down: not at all 7. Trouble concentrating on things, such as reading the newspaper or watching television: not at all 8. Moving or speaking so slowly that other people could have noticed. Or the opposite - being so fidgety or restless that you have been moving around a lot more than usual: not at all 9. Thoughts that you would be better off or of hurting yourself in some way: not at all Total score: 0 Depression Screening Interpretation: Negative Depression Screening Done: Yes Source: Developed by Drs. Alverto Begum, Flor Welch, Thang Richter and colleagues, with an educational eileen from [employer]. Thrive Questionnaire Date Thrive assessed: 10/18/22 AUDIT C Alcohol Use Questionnaire (AUDIT-C) 1. How often do you have a drink containing alcohol?: Monthly or less 2. How many drinks containing alcohol do you have on a typical day when you are drinking?: 1 or 2 3. How often do you have six or more drinks on one occasion?: Never Total Score: 1 BIGG-7 AMB Questionnaire BIGG-7 Date BIGG - 7 assessed: 04/22/23 Feeling nervous, anxious, or on edge: 0 = Not at all Not being able to stop or control worryin = Not at all Worrying too much about different things: 0 = Not at all Trouble relaxin = Not at all Being so restless that it is hard to sit still: 0 = Not at all Becoming easily annoyed or irritable: 0 = Not at all Feeling afraid as if something awful might happen: 0 = Not at all Total BIGG-7 score (0-4 normal; 5-9 mild; 10-14 moderate; 15-21 severe): 0 Source: Developed by Drs. Alverto Begum, Flor Welch, Thang Richter and colleagues, with an educational eileen from [employer]. Review of Systems Const Denies poor appetite and Denies weakness Eyes Denies no additional complaints ENT Reports Normal hearing present, Denies dizziness, Denies nasal congestion, Denies tinnitus and Denies sore throat Card Denies chest pain, Denies syncope, Denies rapid heart rate and Denies dyspnea Resp Denies cough and Denies dyspnea GI Denies change in stool character, Reports constipation, Denies diarrhea, Denies nausea and Denies vomiting Denies urinary frequency, Denies difficulty voiding and Denies dysuria Neuro Reports Normal hearing present, Denies confusion, Denies dizziness, Denies syncope and Denies weakness Psych Denies confusion Physical exam (Primary Care) Vital Signs: Last Vital Signs Pulse 78 04/22/23 13:28 BP 112/68 04/22/23 13:28 Pulse Ox 100 04/22/23 13:28 Oxygen Delivery Method Room Air 04/22/23 13:28 BMI result Body Mass Index 20.5 Tobacco/Smoking Status: Tobacco use Status Tobacco use date assessed 04/22/23 04/22/23 13:29 Patient Tobacco Use Status Never used Tobacco 04/22/23 13:29 e-Cigarette/Vaping Use Never Used 04/22/23 13:29 PHQ-9: PHQ-9 Score PHQ-9: Total score 0 04/22/23 13:45 Depression Screening Interpretation: Negative Thrive Assessment: Date of Thrive Assessment Date Thrive assessed 10/18/22 04/22/23 13:29 Const General: alert and awake; No confusion Orientation/consciousness: No confusion HENMT Head: Yes normocephalic Ears: external ears normal and TM's normal bilaterally Face and sinus: Yes normal facial exam Mouth: moist mucous membranes Throat: Yes tonsils normal Eyes Conjunctivae: conjunctivae normal Pupils: Equal, round and reactive pupils present and Pupil accommodation reflex normal Direct Ophthalmoscopy: normal light reflex Neck Neck: No lymphadenopathy Thyroid: Thyroid normal Chest Chest palpation & inspection: normal inspection of the chest Resp Effort & Inspection: normal respiratory effort and no audible wheezes Auscultation: clear to auscultation bilaterally, no crackles, no wheezes and lung sounds not diminished Cardio Rate: regular rate Rhythm: regular rhythm Peripheral pulses: radial pulses present and dorsalis pedis present GI Other: Stools guaiac negative Palpation (GI): no masses Auscultation: normal bowel sounds and normoactive bowel sounds Skin General skin exam: no rashes or lesions noted Rashes: no rashes Neuro General: deep tendon reflexes 2+ bilaterally and No confusion Cranial nerves: Yes Equal, round and reactive pupils present, Yes Midline tongue present, Yes Normal hearing present and Yes Ability to bilaterally elevate shoulders present Cognition (Neuro): normal cognition Gait exam (Neuro): Normal gait present Motor exam (neuro): 5/5 motor strength present throughout Deep tendon reflexes (DTR's): Right brachioradialis reflex intensity grade: 2+, Left brachioradialis reflex intensity grade: 2+, Right patellar reflex intensity grade: 2+ and Left patellar reflex intensity grade: 2+ Extrem General: No edema Assessment and Plan Assessment & Plan (1) Annual physical exam: Code(s): Z00.00 - Encounter for general adult medical examination without abnormal findings (2) Migraine: Code(s): G43.909 - Migraine, unspecified, not intractable, without status migrainosus Plan: Keep well hydrated eat healthy keep active, have an adequate sleep (3) Hypercholesterolemia: Code(s): E78.00 - Pure hypercholesterolemia, unspecified Plan: Avoid fried foods, chicken skin, eggs, butter margarine, pastries and meat. Be it pork or beef they have a lot of cholesterol LDL goal of less than 130 and triglyceride of less than 150 (4) Osteoporosis: Comment: April 2021 Code(s): M81.0 - Age-related osteoporosis without current pathological fracture Plan: Discussed about bone density repeat testing this year, continue with alendronate (5) Right renal stone: Comment: February right renal calculi Code(s): N20.0 - Calculus of kidney Plan: Increase oral fluids will continue to monitor for now. Orders: Orders Urine Cytology Today N20.0 - Calculus of kidney US renal BI 6 Months N20.0 - Calculus of kidney XR DEXA axial skeleton Today M81.0 - Age-related osteoporosis without current pathological fracture UA w Microscopic Today N20.0 - Calculus of kidney Referrals Urology Referral N20.0 - Calculus of kidney Coding Level of Care Code Est Pt Prev Care 40-64y(98975) Diagnoses Annual physical exam Z00.00 Migraine G43.909 Hypercholesterolemia E78.00 Osteoporosis M81.0 Right renal stone N20.0
== END 2023-04-22 14:59 | disposition home or self-care (01) ==
PROVIDERS: Visit Provider Internal Medicine
DX: Z00.00 Encounter for general adult medical examination without abnormal findings (principal); G43.909 Migraine, unspecified, not intractable, without status migrainosus; E78.00 Pure hypercholesterolemia, unspecified; M81.0 Age-related osteoporosis without current pathological fracture; N20.0 Calculus of kidney
CPT/HCPCS: 99396

== ENCOUNTER 2023-04-22 15:07 | Outpatient (REF) | payer BC, SELFPAY ==
[2023-04-22 16:47] LABS: Urine Cytology See Pathology rpt
[2023-04-23 08:58] LABS: Appearance Urine Cloudy; Color Urine Yellow; Glucose Urine UA Negative (Negative); Leukocyte Esterase Urine Negative (Negative); Nitrite Urine Negative (Negative); PH 5.5 (5.0-9.0); Specific Gravity - Urine >= 1.030 (1.005-1.025); UMIC TRIGGER UA YES; Urine Blood Small (1+) (Negative); Urine Ketones Trace mg/dL (Negative); Urine Protein Negative (Neg-Trace)
[2023-04-23 09:01] LABS: Bacteria Urine None Seen (None Seen); Hyaline Casts Urine 0-2 /LPF (0-2); RBC Urine >20 /HPF (0-2); Squamous Epithelial Cell Urine 0-2 /HPF (0-2)
== END 2023-04-22 15:08 | disposition home or self-care (01) ==
LOC: HO.LAB 15:07
PROVIDERS: PCP Internal Medicine; Visit Provider Internal Medicine
DX: N20.0 Calculus of kidney (principal)
CPT/HCPCS: 81001; 88112

== ENCOUNTER 2023-05-08 10:37 | Outpatient (REF) | payer BC, SELFPAY ==
--- NOTE | ~2023-05-08 | MM_ITS ---
EXAMINATION: BONE DENSITOMETRY CLINICAL INDICATION: Age-related osteoporosis without current pathological fracture. COMPARISON: Previous BD dated 05/03/2021 and baseline BD dated 10/28/2014. TECHNIQUE: Using a [employer] DXA System (software version: 13.1) manufactured by [employer], dual-energy x-ray absorptiometry was performed of the lumbar spine and left hip. The images are of good technical quality. Summary results are attached. FINDINGS: AP SPINE L1-L4: Current: BMD 0.788 g/cm2, Z-score -1.8, T-score -3.3, osteoporosis, 10.0% decrease from previous, 22.9% decrease from baseline (<5% change is not significant). Prior: BMD 0.876 g/cm2. Baseline: BMD 1.022 g/cm2. LEFT FEMUR, NECK: Current: BMD 0.812 g/cm2, Z-score -0.2, T-score -1.6, osteopenia. Prior: BMD 0.813 g/cm2. Baseline: BMD 0.925 g/cm2. LEFT FEMUR, TOTAL: Current: BMD 0.758 g/cm2, Z-score -0.8, T-score -2.0, osteopenia, 2.1% decrease from previous, 14.0% decrease from baseline (<5% change is not significant). Prior: BMD 0.774 g/cm2. Baseline: BMD 0.881 g/cm2. IDENTIFIED RISK FACTORS: Osteoporosis. Parental hip fracture. Menopause. Hysterectomy. Bilateral oophorectomy. HISTORY OF FRACTURE: None listed. MEDICATIONS: Bisphosphonate. MM/XR DEXA axial skeleton IMPRESSION: 1. DIAGNOSIS: Osteoporosis based on the lowest T-score value of -3.3 in the lumbar spine applying World Health Organization criteria. 2. 10-YEAR FRACTURE RISK PREDICTION, FRAX: According to the guidelines, FRAX calculation should only be performed on patients in the osteopenia bone density category.?Therefore, FRAX was not performed on this patient.? 3. Treatment Recommendations: NOF guidelines recommend consideration for treatment in postmenopausal women and men age 50 and older presenting with the following: -A hip or vertebral (clinical or morphometric) fracture. -T-score less than or equal to -2.5 at the femoral neck or spine after appropriate evaluation to exclude secondary causes. -Low bone mass at the hip or spine and a 10-year fracture probability by FRAX of greater than or equal to 3% for hip fracture or greater than or equal to 20% for major osteoporotic fracture based on the [place] adapted WHO algorithm. 4. Other Recommendations: All treatment decisions require clinical judgment and consideration of individual patient factors, including patient preferences, comorbidities, previous drug use, risk factors not captured in the FRAX model (e.g. frailty, falls, vitamin D deficiency, increased bone turnover, interval significant decline in bone density) and possible under or overestimation of fracture risk by FRAX. Additional medical evaluation for secondary cause of low bone mineral density may be appropriate. FUTURE SCAN RECOMMENDATION: People with diagnosed cases of osteoporosis or at high risk for fracture should have regular bone mineral density tests. For patients eligible for Medicare, routine testing is allowed once every 2 years. The testing frequency can be increased to one year for patients who have rapidly progressing disease, those who are receiving or discontinuing medical therapy to restore bone mass, or have additional risk factors.
== END 2023-05-08 10:38 | disposition home or self-care (01) ==
LOC: HO.MAMMO 10:37
PROVIDERS: PCP Internal Medicine; Visit Provider Internal Medicine
DX: Z13.820 Encounter for screening for osteoporosis (principal); M81.0 Age-related osteoporosis without current pathological fracture; Z78.0 Asymptomatic menopausal state
CPT/HCPCS: 77080

== ENCOUNTER 2023-06-05 08:52 | Outpatient (AMB) | payer BC, SELFPAY ==
--- NOTE | 2023-06-05 09:22 | MHC.OFFVIS ---
Intake Intake Visit Reasons: Calculus of kidney Intake Note: New Patient presents for initial visit for kidney stone Urology Medications: none Blood Thinner: aspirin General Manager Required: No Accompanied by: Self / Same As Patient Allergies codeine [CODEINE] Allergy (Unknown, Verified 06/05/23 09:52) SEVERE HEADACHE Medication List - Last Reconciled 06/05/23 by Poonam Wright, AIRCRA[employer] B[employer] REPAIRER-BC alendronate (Fosamax) 70 mg PO QWEEK 30 days ngmjmou-fijnmbbrhdwwz-zdvjliin 250-250-65 mg (Excedrin Migraine) 1 tab PO Q4-6H PRN cetirizine (Zyrtec) 10 mg PO DAILY coQ10 (ubiquinol) (Qunol Alireza CoQ10) 100 mg PO BID multivitamin,tx-minerals 1 tab PO DAILY HPI HPI Comments History of Present Illness Details Viviana Onofre is a very pleasant 63-year-old female patient of Dr. Toth. She has a past medical history of osteopenia, hypercholesteremia, and migraines. She presents to the office today as a new patient for nephrolithiasis. Discussion with the patient today she reports to be doing and feeling well. She reports early last year having experienced intermittent left-sided flank pain she had been experiencing with movement at which time on ultrasound was ordered and the patient was noted to have right-sided stones. She reports since then she had surveillance imaging earlier this year in August noting right-sided stones in discussion with her PCP recommendations were made for Urology follow-up. Renal imaging results from August reviewed with the patient today. Nonobstructive echogenic stones mid pole right kidney. The left kidney is unremarkable. She currently denies any bothersome urinary issues or concerns. She reports flank pain has since subsided. She denies urinary urgency, urinary frequency, incontinence, nocturia, hematuria, dysuria, foul smelling urine, changes to urinary stream, flank pain, fever, and or chills. She is happy with her current voiding parameters. Discussed at length potential causes of nephrolithiasis. Discussed surveillance monitoring versus further workup with CT KUB. When asked patient does report to be drinking plenty of water daily. In office urinalysis results reviewed with the patient today. She otherwise offers no other issues or concerns at this time. [facility] Medical History Osteopenia Hypercholesterolemia Migraine Surgical History Hx of appendectomy History of hysterectomy History of laparotomy Family History Father Diabetes Hypertension Skin cancer Mother Hypertension Skin cancer Brother No problems noted. Brother No problems noted. Social History Housing: House Alcohol intake: never Patient Tobacco Use Status: Never used Tobacco e-Cigarette/Vaping Use: Never Used service: No Current occupational status: employed Cognitive needs: No Hearing needs: No Vision needs: Yes Review of Systems Eyes Reports no additional complaints ENT Reports no additional complaints Card Reports as per HPI Resp Reports no additional complaints GI Reports no additional complaints Reports as per HPI Musc Reports as per HPI Neuro Reports as per HPI Psych Reports no additional complaints Endo Reports no additional complaints Efra/Lymph Reports no additional complaints Aller/Immun Reports no additional complaints Physical Exam Const General: cooperative, comfortable, no acute distress, well developed, alert and awake Orientation/consciousness: patient oriented x3 Limitations: no limitations HEENT Head: Yes normal to inspection, Yes normocephalic and Yes atraumatic Ears: hearing grossly normal bilaterally Eyes General: appearance normal, both eyes and all related structures Neck Neck: Yes normal visual inspection and Yes trachea midline Chest Chest palpation & inspection: normal inspection of the chest Resp Effort & Inspection: normal respiratory effort and able to speak in complete sentences Cardio Rate: regular rate GI Inspection: Yes normal to inspection General: Yes no CVA tenderness Back/Spine/Pelvis Back: no CVA tenderness Skin General skin exam: no rashes or lesions noted Neuro General: patient oriented x3 Extrem General: Yes normal to inspection Psych Appearance: grossly normal and well kempt Mental Status: mental status grossly normal Speech and movement: Normal speech and movement present and Clear speech present Affect: normal affect Attitude: cooperative Thought process: Normal thought process present Thought content: Normal thought content present Insight: Fair insight present (Psych) Judgement: Fair judgement present (Psych) Results AMB Urinalysis, Automated UA Leukoctes 15 Richard/uL Last Edit by Samantha Morrison on 06/05/23 09:32 UA Nitrite Negative Last Edit by Samantha Morrison on 06/05/23 09:32 UA Urobilinogen 0.2 mg/dL Last Edit by Samantha Morrison on 06/05/23 09:32 UA Protein 0 mg/dL Last Edit by Samantha Morrison on 06/05/23 09:32 UA pH 6.0 Last Edit by Samantha Morrison on 06/05/23 09:32 UA Blood 80 Hardeep/uL Last Edit by Samantha Morrison on 06/05/23 09:32 UA Specific [place] 1.000 Last Edit by Samantha Morrison on 06/05/23 09:32 UA Ketone Negative Last Edit by Samantha Morrison on 06/05/23 09:32 UA Bilirubin 0 mg/dL Last Edit by Samantha Morrison on 06/05/23 09:32 UA Glucose 0 mg/dL Last Edit by Samantha Morrison on 06/05/23 09:32 Results Reviewed Results Reviewed: Laboratory Last Values Urine pH (Auto) 6.0 06/05/23 09:24 Specific [place] (Auto) 1.000 06/05/23 09:24 Urine Protein (Auto) 0 mg/dL 06/05/23 09:24 Glucose (UA)(Auto) 0 mg/dL 06/05/23 09:24 Urine Ketones (Auto) Negative 06/05/23 09:24 Urine Blood (Auto) 80 Hardeep/uL 06/05/23 09:24 Urine Nitrite (Auto) Negative 06/05/23 09:24 Urine Bilirubin (Auto) 0 mg/dL 06/05/23 09:24 Urine Urobilinogen (Auto) 0.2 mg/dL 06/05/23 09:24 Leukocyte Esterase (Auto) 15 Richard/uL 06/05/23 09:24 Date of Service: 09/19/22 EXAMINATION: US RETROPERITONEAL LIMITED (RENAL ONLY) CLINICAL INFORMATION: Calculus of kidney. COMPARISON: Ultrasound retroperitoneal complete (renal) 03/01/2022. CT abdomen and pelvis 08/01/2017. X-ray abdomen KUB 06/06/2017. TECHNIQUE: Real-time imaging of the kidneys. FINDINGS: RIGHT KIDNEY: 9.8 x 4.2 x 5.5 cm (SAG x AP x TRV). The kidney is normal in size, contour, and echogenicity. Renal cortical thickness is normal. No focal parenchymal lesions or hydronephrosis. There is an echogenic stone midpole measuring 0.24 x 0.24 x 0.20 cm and 0.19 x 0.30 x 0.28 cm. There is no caliectasis. LEFT KIDNEY: 10.3 x 5.2 x 4.7 cm (SAG x AP x TRV). The kidney is normal in size, contour, and echogenicity. Renal cortical thickness is normal. No calculi or focal parenchymal lesions. No hydronephrosis. IMPRESSION: 1. Nonobstructive echogenic stones midpole right kidney. Only one echogenic calculi was seen in the mid to lower pole, right kidney, on the previous exam. 2. The left kidney is unremarkable. Assessment & Plan Assessment & Plan (1) Nephrolithiasis: Code(s): N20.0 - Calculus of kidney Plan In office urinalysis results reviewed with the patient today; as noted above. Most recent renal ultrasound from August reviewed with the patient today; as noted above. Discussed at length potential cause of nephrolithiasis Will obtain CT KUB for further assessment evaluation. Discussed, educated, encouraged on the importance of drinking plenty of water daily. Discussed vitamin B6 Discussed adding 1 oz of lemon juice to water daily. Follow-up in 2-4 weeks with imaging to be completed prior; or sooner with any issues, concerns, and or questions. Orders: Orders AMB Urinalysis Automated Today Z13.9 - Encounter for screening, unspecified CT kidney stone Today N20.0 - Calculus of kidney Patient Instructions: The patient had an opportunity to ask questions regarding the treatment plan. All questions were answered. Physical exam, labs, and imaging were discussed and reviewed in detail. As well as risks, benefits, and discussion of treatment choices. No major barriers to understanding were identified. The patient expressed understanding and agreement with the above treatment plan. The patient was made aware they should contact our office by phone for worsening of their current condition, the appearance of new symptoms, or with any questions or concerns. Compliance is encouraged with any medications and follow up testing that is ordered. It is a privilege to be allowed the opportunity to participate in? your urological care.? Again, if you have any questions or concerns If you have any questions or concerns please do not hesitate to contact me. The office is [phone]. This note is constructed using voice recognition software. While every effort has been made to ensure accuracy print binding and finishing worker errors may have been included. Yours sincerely, Poonam Wright AIRCRAFT BODY REPAIRER- Coding Level of Care Code New Pt Level 3 (08644) Diagnoses Nephrolithiasis N20.0
== END 2023-06-05 09:55 | disposition home or self-care (01) ==
PROVIDERS: PCP Internal Medicine; Visit Provider Nurse Practitioner Family
DX: Z13.9 Encounter for screening, unspecified (principal); N20.0 Calculus of kidney
CPT/HCPCS: 99203

== ENCOUNTER → 2023-06-05 08:52 | Outpatient (BNVA) | payer BC, SELFPAY | PROVIDERS: PCP Internal Medicine; Visit Provider Nurse Practitioner Family | DX: N20.0 Calculus of kidney (principal) | CPT/HCPCS: 81003 ==

== ENCOUNTER 2023-06-12 11:55 | Outpatient (REF) | payer BC, SELFPAY ==
--- NOTE | ~2023-06-12 | US_ITS ---
EXAMINATION: US SCREENING ULTRASOUND BREAST, BILATERAL CLINICAL INFORMATION: Dense breasts on mammography. Screening ultrasound. COMPARISON: Digital breast tomosynthesis 09/07/2022, 09/06/2021, bilateral screening breast ultrasound 09/19/2022, 05/30/2022, 05/03/2021 TECHNIQUE: Ultrasound is performed using grayscale imaging and color Doppler. Imaging is performed to include the four quadrants and retroareolar region. Both breasts are imaged. FINDINGS: Right breast: There is no suspicious finding by ultrasound. There is no cystic or solid mass or focal architectural abnormality. Left breast: There is no suspicious finding by ultrasound. There is no cystic or solid mass or focal architectural abnormality. US/US breast LT complete mammo IMPRESSION: Normal study ASSESSMENT: BI-RADS 1: Negative RECOMMENDATION: Routine annual mammography screening. This patient's information was entered into a reminder system with a target due date for their next mammogram.
--- NOTE | ~2023-06-12 | US_ITS ---
EXAMINATION: US SCREENING ULTRASOUND BREAST, BILATERAL CLINICAL INFORMATION: Dense breasts on mammography. Screening ultrasound. COMPARISON: Digital breast tomosynthesis 09/07/2022, 09/06/2021, bilateral screening breast ultrasound 09/19/2022, 05/30/2022, 05/03/2021 TECHNIQUE: Ultrasound is performed using grayscale imaging and color Doppler. Imaging is performed to include the four quadrants and retroareolar region. Both breasts are imaged. FINDINGS: Right breast: There is no suspicious finding by ultrasound. There is no cystic or solid mass or focal architectural abnormality. Left breast: There is no suspicious finding by ultrasound. There is no cystic or solid mass or focal architectural abnormality. US/US breast RT complete mammo IMPRESSION: Normal study ASSESSMENT: BI-RADS 1: Negative RECOMMENDATION: Routine annual mammography screening. This patient's information was entered into a reminder system with a target due date for their next mammogram.
== END 2023-06-12 11:56 | disposition home or self-care (01) ==
LOC: HO.MAMMO 11:55
PROVIDERS: PCP Internal Medicine; Visit Provider Obstetrics & Gynecology
DX: R92.30 Dense breasts, unspecified (principal)
CPT/HCPCS: 76641

== ENCOUNTER → 2023-06-12 12:00 | Outpatient (BNV) | payer BC, SELFPAY | PROVIDERS: PCP Internal Medicine; Visit Provider Radiology Diagnostic Radiology | DX: Z12.39 Encounter for other screening for malignant neoplasm of breast (principal) | CPT/HCPCS: 76641 ==

== ENCOUNTER 2023-06-26 07:21 | Outpatient (REF) | payer BC, SELFPAY | END 2023-06-26 07:22 | disposition home or self-care (01) | LOC: HO.CT 07:21 | PROVIDERS: PCP Internal Medicine; Visit Provider Nurse Practitioner Family | DX: N20.0 Calculus of kidney (principal) | CPT/HCPCS: 74176 ==

== ENCOUNTER 2023-07-01 09:23 | Outpatient (AMB) | payer BC, SELFPAY ==
--- NOTE | 2023-07-01 09:45 | MHC.OFFVIS ---
Intake Intake Visit Reasons: 4w/CT Intake Note: Patient presents for follow up visit for kidney stone/CT Scan (imaging 06/26/23) Urology Medications: none Blood Thinner: aspirin Bonding Supervisor Required: No Accompanied by: Self / Same As Patient Allergies codeine [CODEINE] Allergy (Unknown, Verified 07/01/23 11:20) SEVERE HEADACHE Medication List - Last Reconciled 07/01/23 by ISAIAH PastranaP-BC alendronate (Fosamax) 70 mg PO QWEEK 30 days dltsmbx-nyanubehlnhfo-edjogoql 250-250-65 mg (Excedrin Migraine) 1 tab PO Q4-6H PRN cetirizine (Zyrtec) 10 mg PO DAILY coQ10 (ubiquinol) (Qunol Alireza CoQ10) 100 mg PO BID multivitamin,tx-minerals 1 tab PO DAILY HPI HPI Comments History of Present Illness Details Viviana Onofre is a very pleasant 63-year-old female patient of Dr. Toth. She has a past medical history of osteopenia, hypercholesteremia, and migraines. She presents to the office today for follow-up. Of note, patient was seen approximately 1 month ago as a new patient for nephrolithiasis at which time a CT KUB was ordered for further assessment evaluation. These results reviewed with the patient today. The kidneys are normal in size, shape, and attenuation. No hydronephrosis, hydroureter, or calculi seen. The small echogenic foci seen in the right kidney measuring 2 and 3 mm on the prior ultrasound show no correlate on this CT scan. The echogenic foci seen on prior ultrasound studies do not appear to represent calcified nephrolithiasis. No perinephric stranding. No renal masses. The bladder is empty. She currently denies any bothersome urinary issues or concerns. In discussion with the patient today she reports to be doing and feeling well. She denies urinary urgency, urinary frequency, incontinence, nocturia, hematuria, dysuria, foul smelling urine, changes to urinary stream, flank pain, fever, and or chills. She is happy with her current voiding parameters. Discussed at length potential causes of nephrolithiasis. Discussed surveillance monitoring. When asked patient does report to be drinking plenty of water daily. In office urinalysis results reviewed with the patient today. She otherwise offers no other issues or concerns at this time. [facility] Medical History Osteopenia Hypercholesterolemia Migraine Surgical History Hx of appendectomy History of hysterectomy History of laparotomy Family History Father Diabetes Hypertension Skin cancer Mother Hypertension Skin cancer Brother No problems noted. Brother No problems noted. Social History Housing: House Alcohol intake: never Patient Tobacco Use Status: Never used Tobacco e-Cigarette/Vaping Use: Never Used service: No Current occupational status: employed Cognitive needs: No Hearing needs: No Vision needs: Yes Review of Systems Eyes Reports no additional complaints ENT Reports no additional complaints Card Reports as per HPI Resp Reports no additional complaints GI Reports no additional complaints Reports as per HPI Musc Reports as per HPI Neuro Reports as per HPI Psych Reports no additional complaints Endo Reports no additional complaints Efra/Lymph Reports no additional complaints Aller/Immun Reports no additional complaints Physical Exam Const General: cooperative, healthy appearing, comfortable, no acute distress, well developed, alert and awake Orientation/consciousness: patient oriented x3 Limitations: no limitations HEENT Head: Yes normal to inspection, Yes normocephalic and Yes atraumatic Ears: hearing grossly normal bilaterally Eyes General: appearance normal, both eyes and all related structures Neck Neck: Yes normal visual inspection and Yes trachea midline Chest Chest palpation & inspection: normal inspection of the chest Resp Effort & Inspection: normal respiratory effort and able to speak in complete sentences Cardio Rate: regular rate GI Inspection: Yes normal to inspection General: Yes no CVA tenderness Back/Spine/Pelvis Back: no CVA tenderness Skin General skin exam: no rashes or lesions noted Neuro General: patient oriented x3 Extrem General: Yes normal to inspection Psych Appearance: grossly normal and well kempt Mental Status: mental status grossly normal Speech and movement: Normal speech and movement present and Clear speech present Affect: normal affect Attitude: cooperative Thought process: Normal thought process present Thought content: Normal thought content present Insight: Fair insight present (Psych) Judgement: Fair judgement present (Psych) Results AMB Urinalysis, Automated UA Leukoctes 15 Richard/uL Last Edit by Samantha Morrison on 07/01/23 10:23 UA Nitrite Negative Last Edit by Samantha Morrison on 07/01/23 10:23 UA Urobilinogen 0.2 mg/dL Last Edit by Samantha Morrison on 07/01/23 10:23 UA Protein 0 mg/dL Last Edit by Samantha Morrison on 07/01/23 10:23 UA pH 6.0 Last Edit by Samantha Morrison on 07/01/23 10:23 UA Blood 80 Hardeep/uL Last Edit by Samantha Morrison on 07/01/23 10:23 UA Specific Marathon 1.005 Last Edit by Ronaldycsonia Morrison on 07/01/23 10:23 UA Ketone Negative Last Edit by Plynkedclifford Morrison on 07/01/23 10:23 UA Bilirubin 0 mg/dL Last Edit by Samantha Morrison on 07/01/23 10:23 UA Glucose 0 mg/dL Last Edit by Samantha Morrison on 07/01/23 10:23 Results Reviewed Results Reviewed: Laboratory Last Values Urine pH (Auto) 6.0 07/01/23 09:57 Specific Marathon (Auto) 1.005 07/01/23 09:57 Urine Protein (Auto) 0 mg/dL 07/01/23 09:57 Glucose (UA)(Auto) 0 mg/dL 07/01/23 09:57 Urine Ketones (Auto) Negative 07/01/23 09:57 Urine Blood (Auto) 80 Hardeep/uL 07/01/23 09:57 Urine Nitrite (Auto) Negative 07/01/23 09:57 Urine Bilirubin (Auto) 0 mg/dL 07/01/23 09:57 Urine Urobilinogen (Auto) 0.2 mg/dL 07/01/23 09:57 Leukocyte Esterase (Auto) 15 Richard/uL 07/01/23 09:57 Date of Service: 06/26/23 EXAMINATION: CT KIDNEY STONE FINDINGS: LUNG BASES: The visualized lung bases are unremarkable. LIVER, GALLBLADDER, AND BILIARY TREE: The liver is normal in size, shape, and attenuation. No focal hepatic lesion or biliary ductal dilatation is present. The gallbladder is unremarkable with no evidence of radiopaque gallstones, gallbladder wall thickening, or obvious pericholecystic inflammatory changes. PANCREAS: Unremarkable. SPLEEN: Unremarkable. ADRENAL GLANDS: Unremarkable. KIDNEYS AND URETERS: The kidneys are normal in size, shape, and attenuation. No hydronephrosis, hydroureter, or calculi seen. The small echogenic foci seen in the right kidney measuring 2 and 3 mm on the prior ultrasound show no correlate on this CT scan. The echogenic foci seen on prior ultrasound studies do not appear to represent calcified nephrolithiasis. No perinephric stranding. No renal masses. BLADDER: Empty and poorly evaluated. No calculi. GASTROINTESTINAL TRACT: The small and large bowel are unremarkable. The appendix is not seen but there is no evidence of appendicitis. ABDOMINAL WALL: No significant hernia is appreciated. LYMPH NODES: No retroperitoneal lymphadenopathy. VASCULAR: Unremarkable. PELVIC VISCERA: The uterus is not seen. An abnormal adnexal mass is not detected. No free intraperitoneal fluid is present. OSSEOUS STRUCTURES: Mild degenerative changes are present in the lumbar spine from L2 through S1. No bony destructive lesions. IMPRESSION: 1. No renal calculi are seen. The echogenic foci seen on prior ultrasound studies do not appear to represent calcified nephrolithiasis. 2. Incidental note made of hysterectomy changes and mild degenerative changes in the lumbar spine. Assessment & Plan Assessment & Plan (1) Nephrolithiasis: Code(s): N20.0 - Calculus of kidney Plan In office urinalysis results reviewed with the patient today; as noted above. Recent CT KUB results reviewed with the patient today; as noted above. Discussed at length potential causes of nephrolithiasis. Patient denies any bothersome urinary issues or concerns at this time. She reports be happy with current voiding parameters. Discussed, educated, and stressed the importance of continuing to drink plenty of water daily. Discussed further metabolic workup with 24 hour urine collection and labs; will await at this time Renal ultrasound ordered with PCP for 6 months; will follow-up post ultrasound Follow-up in 6 months with imaging to be completed prior; or sooner with any issues, concerns, and or questions. Orders: Orders AMB Urinalysis Automated Today Z13.9 - Encounter for screening, unspecified US renal BI 6 Months N20.0 - Calculus of kidney Patient Instructions: The patient had an opportunity to ask questions regarding the treatment plan. All questions were answered. Physical exam, labs, and imaging were discussed and reviewed in detail. As well as risks, benefits, and discussion of treatment choices. No major barriers to understanding were identified. The patient expressed understanding and agreement with the above treatment plan. The patient was made aware they should contact our office by phone for worsening of their current condition, the appearance of new symptoms, or with any questions or concerns. Compliance is encouraged with any medications and follow up testing that is ordered. It is a privilege to be allowed the opportunity to participate in? your urological care.? Again, if you have any questions or concerns If you have any questions or concerns please do not hesitate to contact me. The office is [phone]. This note is constructed using voice recognition software. While every effort has been made to ensure accuracy talent acquisition operations manager errors may have been included. Yours sincerely, DANIEL Pastrana Coding Level of Care Code Est Pt Level 3 (75675) Diagnoses Nephrolithiasis N20.0
== END 2023-07-01 10:49 | disposition home or self-care (01) ==
PROVIDERS: PCP Internal Medicine; Visit Provider Nurse Practitioner Family
DX: N20.0 Calculus of kidney (principal); Z13.9 Encounter for screening, unspecified
CPT/HCPCS: 99213

== ENCOUNTER → 2023-07-01 09:23 | Outpatient (BNVA) | payer BC, SELFPAY | PROVIDERS: PCP Internal Medicine; Visit Provider Nurse Practitioner Family | DX: N20.0 Calculus of kidney (principal) | CPT/HCPCS: 81003 ==

== ENCOUNTER 2023-10-22 08:11 | Outpatient (AMB) | payer BC, SELFPAY ==
[2023-10-22 08:22] VITALS: BP 124/78; PULSE 68; O2SAT 98; BMI 20.7
--- NOTE | 2023-10-22 08:22 | A.OFFPC_ITS ---
Vital Signs 10/22/23 08:22 Height 5 ft 6 in Weight 128 lb BMI 20.7 BP 124/78 Blood Pressure Location Lt brachial Position Standing Pulse 68 Pulse Source Pulse Oximeter Pulse Oximetry (%) 98 Oxygen Delivery Method Room Air Intake Visit Reasons: renal calculi Allergies codeine [CODEINE] Allergy (Unknown, Verified 10/22/23 08:23) SEVERE HEADACHE Tobacco use date assessed: 10/22/23 Dental Screening Dental Screen Date: 10/22/23 Did you have a dental visit in the last 12 months?: Yes Did you have a dental problem in the last 6 months where you did not have access to dental care?: No Was dental information given to patient?: Patient has dentist HPI renal calculi HPI Details 63-year-old female with a history of denisa julieta hypercholesterolemia nephrolithiasis right coming in for follow-up. Last seen in March 2023 for physical exam. Patient's mammogram is due, colonoscopy is up-to-date bone density done in April 2023. Patient follows up with Dermatology for telangiectasias. Patient also has seen the Urology in June patient had a CT scan done which revealed no renal calculi however on prior ultrasound it did reveal nonobstructive echogenic stones in the right kidney. PAtient is doing good , no n no v no fvers, no cough , no b/b sx seen eye doctor [facility] Medical History Osteopenia Hypercholesterolemia Migraine Surgical History Hx of appendectomy History of hysterectomy History of laparotomy Family History Father Diabetes Hypertension Skin cancer Mother Hypertension Skin cancer Brother No problems noted. Brother No problems noted. Social History Housing: House Alcohol intake: never Patient Tobacco Use Status: Never used Tobacco e-Cigarette/Vaping Use: Never Used service: No Current occupational status: employed Cognitive needs: No Hearing needs: No Vision needs: Yes Questionnaire PHQ-9 Over the last 2 weeks, how often have you been bothered by any of the following problems? 1. Little interest or pleasure in doing things: not at all 2. Feeling down, depressed, or hopeless: not at all 3. Trouble falling or staying asleep, or sleeping too much: not at all 4. Feeling tired or having little energy: not at all 5. Poor appetite or overeating: not at all 6. Feeling bad about yourself - or that you are a failure or have let yourself or your family down: not at all 7. Trouble concentrating on things, such as reading the newspaper or watching television: not at all 8. Moving or speaking so slowly that other people could have noticed. Or the opposite - being so fidgety or restless that you have been moving around a lot more than usual: not at all 9. Thoughts that you would be better off or of hurting yourself in some way: not at all Total score: 0 Depression Screening Interpretation: Negative Depression Screening Done: Yes Source: Developed by Drs. Alverto Begum, Flor Welch, Thang Richter and colleagues, with an educational eileen from [employer]. Thrive Questionnaire Date Thrive assessed: 10/22/23 I am a: Patient What is your living situation today?: I have a steady place to live Within the past 12 months, did the food you bought not last and you didn't have the money to get more?: Never true Within the past 12 months, did you worry whether your food would run out before you got money to buy more?: Never true Do you have trouble paying for medicines?: No Do you have trouble getting transportation to medical appointments?: No Do you have trouble paying your heating and electricity bill?: No Do you have trouble taking care of your child, family member or friend?: No Do you have trouble with day-to-day activities such as bathing, preparing meals, shopping, managing finances, etc.?: No Are you currently unemployed and looking for a job?: No Are you interested in more education?: No Currently or been in a relationship where the following occur: no concerns reported THRIVE Score: 0 AUDIT C Alcohol Use Questionnaire (AUDIT-C) 1. How often do you have a drink containing alcohol?: Monthly or less 2. How many drinks containing alcohol do you have on a typical day when you are drinking?: 1 or 2 3. How often do you have six or more drinks on one occasion?: Never Total Score: 1 BIGG-7 AMB Questionnaire BIGG-7 Date BIGG - 7 assessed: 10/22/23 Feeling nervous, anxious, or on edge: 0 = Not at all Not being able to stop or control worryin = Not at all Worrying too much about different things: 0 = Not at all Trouble relaxin = Not at all Being so restless that it is hard to sit still: 0 = Not at all Becoming easily annoyed or irritable: 0 = Not at all Feeling afraid as if something awful might happen: 0 = Not at all Total BIGG-7 score (0-4 normal; 5-9 mild; 10-14 moderate; 15-21 severe): 0 Source: Developed by Drs. Alverto Begum, Flor Welch, Thang Richter and colleagues, with an educational eileen from [employer]. Physical exam (Primary Care) Vital Signs: Last Vital Signs Pulse 68 10/22/23 08:22 BP 124/78 10/22/23 08:22 Pulse Ox 98 10/22/23 08:22 Oxygen Delivery Method Room Air 10/22/23 08:22 BMI result Body Mass Index 20.7 Tobacco/Smoking Status: Tobacco use Status Tobacco use date assessed 10/22/23 10/22/23 08:28 Patient Tobacco Use Status Never used Tobacco 10/22/23 08:28 e-Cigarette/Vaping Use Never Used 10/22/23 08:28 PHQ-9: PHQ-9 Score PHQ-9: Total score 0 10/22/23 08:28 Depression Screening Interpretation: Negative Thrive Assessment: Date of Thrive Assessment Date Thrive assessed 10/22/23 10/22/23 08:28 Currently or been in a relationship where the following occur: no concerns reported Const General: alert; No acute distress Eyes Conjunctivae: conjunctivae normal Resp Auscultation: clear to auscultation bilaterally Cardio Rate: regular rate Rhythm: regular rhythm GI Inspection: Yes normal to inspection Extrem General: Yes normal to inspection and No edema Assessment and Plan Assessment & Plan (1) Right renal stone: Comment: February right renal calculi. CT scan July 13- Code(s): N20.0 - Calculus of kidney Plan: CT scan most recent 1- and patient follows up with urology. (2) Osteoporosis: Comment: April Code(s): M81.0 - Age-related osteoporosis without current pathological fracture Plan: Presently on alendronate patient had last bone density April 2023. Repeat testing in April 2025 (3) Hypercholesterolemia: Code(s): E78.00 - Pure hypercholesterolemia, unspecified Plan: Avoid fried foods, chicken skin, eggs, butter margarine, pastries and meat. Be it pork or beef they have a lot of cholesterol LDL goal of less than 130 and triglyceride of less than 150 Orders: Orders UA w Microscopic 5 Months N20.0 - Calculus of kidney Complete Blood Count Auto Diff 5 Months E78.00 - Pure hypercholesterolemia, unspecified Comprehensive Met. Panel 5 Months E78.00 - Pure hypercholesterolemia, unspecified Lipid Panel 5 Months E78.00 - Pure hypercholesterolemia, unspecified Free T4 (Free Thyroxine) 5 Months E78.00 - Pure hypercholesterolemia, unspecified Magnesium 5 Months E78.00 - Pure hypercholesterolemia, unspecified Thyroid Stimulating Hormone 5 Months E78.00 - Pure hypercholesterolemia, unspecified Vitamin B12 and Folate 5 Months E78.00 - Pure hypercholesterolemia, unspecified Vitamin D 25-OH Total 5 Months E78.00 - Pure hypercholesterolemia, unspecified Erythrocyte Sedimentation Rate 5 Months E78.00 - Pure hypercholesterolemia, unspecified Phosphorus 5 Months E78.00 - Pure hypercholesterolemia, unspecified Coding Level of Care Code Est Pt Level 4 (13647) Diagnoses Right renal stone N20.0 Osteoporosis M81.0 Hypercholesterolemia E78.00
== END 2023-10-22 08:55 | disposition home or self-care (01) ==
PROVIDERS: PCP Internal Medicine; Visit Provider Internal Medicine
DX: N20.0 Calculus of kidney (principal); M81.0 Age-related osteoporosis without current pathological fracture; E78.00 Pure hypercholesterolemia, unspecified
CPT/HCPCS: 99214

== ENCOUNTER 2023-11-25 09:45 | Outpatient (REF) | payer BC, SELFPAY ==
--- NOTE | ~2023-11-25 | MM_ITS ---
EXAMINATION: MM SCREENING DIGITAL BREAST TOMOSYNTHESIS, BILATERAL CLINICAL INFORMATION: Screening. Asymptomatic. COMPARISON: Mammography: This study is compared with prior exams dating back to 2019. TECHNIQUE: Digital breast tomosynthesis is performed in both the craniocaudal and mediolateral oblique views along with computer-aided detection (CAD). Synthesized 2D images are generated from the tomosynthesis. FINDINGS: The breasts are extremely dense, which lowers the sensitivity of mammography (ACR BI-RADS breast composition Category d). There are no significant masses, abnormal calcifications, or other abnormalities. MM/MM tomosynthesis screening BI IMPRESSION: No mammographic evidence of malignancy. ASSESSMENT: BI-RADS BI-RADS 1 - Negative RECOMMENDATION: Routine annual mammography screening. 1 year F/U This examination should not preclude the clinical evaluation of a suspicious palpable abnormality. This patient's information was entered into a reminder system with a target due date for their next mammogram.
== END 2023-11-25 09:46 | disposition home or self-care (01) ==
LOC: HO.MAMMO 09:45
PROVIDERS: PCP Internal Medicine; Visit Provider Obstetrics & Gynecology
DX: Z12.31 Encounter for screening mammogram for malignant neoplasm of breast (principal)
CPT/HCPCS: 77063; 77067

== ENCOUNTER → 2023-11-25 10:30 | Outpatient (BNV) | payer BC, SELFPAY | PROVIDERS: PCP Internal Medicine; Visit Provider Radiology Diagnostic Radiology | DX: Z12.31 Encounter for screening mammogram for malignant neoplasm of breast (principal) | CPT/HCPCS: 77063; 77067 ==

== ENCOUNTER 2023-12-30 09:36 | Outpatient (REF) | payer BC, SELFPAY ==
--- NOTE | ~2023-12-30 | US_ITS ---
EXAMINATION: US RETROPERITONEAL LIMITED (RENAL ONLY) CLINICAL INFORMATION: Calculus of kidney. COMPARISON: CT Stone study 06/26/2023. Ultrasound renal 09/19/2022. Ultrasound retroperitoneal 03/01/2022. X-ray KUB 06/06/2017. TECHNIQUE: Real-time imaging of the kidneys. FINDINGS: RIGHT KIDNEY: 10.0 x 3.7 x 4.3 cm (SAG x AP x TRV). The kidney is normal in size, contour, and echogenicity. Renal cortical thickness is normal. There are 2 echogenic foci measuring 3 mm in size in the mid kidney consistent with non-obstructing calculi. No stones are seen on the 06/26/2023 CT scan. No focal parenchymal lesions or hydronephrosis. LEFT KIDNEY: 10.9 x 4.5 x 4.5 cm (SAG x AP x TRV). The kidney is normal in size, contour, and echogenicity. Renal cortical thickness is normal. No calculi or focal parenchymal lesions. No hydronephrosis. US/US renal BI IMPRESSION: Non-obstructing right renal calculi.
== END 2023-12-30 09:37 | disposition home or self-care (01) ==
LOC: HO.US 09:36
PROVIDERS: PCP Internal Medicine; Visit Provider Nurse Practitioner Family
DX: N20.0 Calculus of kidney (principal)
CPT/HCPCS: 76775

== ENCOUNTER 2024-01-08 09:48 | Outpatient (AMB) | payer BC, SELFPAY ==
--- NOTE | 2024-01-08 09:44 | MHC.OFFVIS ---
Intake Visit Reasons: 4m/US(set) Intake Note: Patient presents for4M follow up AND US Urology Medications: none Blood Thinner: aspirin Gusset Edger Required: No Accompanied by: Self / Same As Patient Allergies codeine [CODEINE] Allergy (Unknown, Verified 01/08/24 10:12) SEVERE HEADACHE Medication List - Last Reconciled 01/08/24 by DANIEL Pastrana alendronate (Fosamax) 70 mg PO QWEEK 30 days plcvltp-amqtxkmqkuyzk-clezqucg 250-250-65 mg (Excedrin Migraine) 1 tab PO Q4-6H PRN cetirizine (Zyrtec) 10 mg PO DAILY coQ10 (ubiquinol) (Qunol Alireza CoQ10) 100 mg PO BID multivitamin,tx-minerals 1 tab PO DAILY HPI Comments Details: Viviana Onofre is a very pleasant 63-year-old female patient of Dr. Toth. She has a past medical history of osteopenia, hypercholesteremia, and migraines. She is being followed up on today via video telehealth for history of nephrolithiasis. Recent renal imaging results reviewed with the patient today. Bilateral kidneys with no lesions or hydronephrosis. There are 2 echogenic foci measuring approximately 3 mm in size in the mid kidney. She discusses her concern regarding previous CT results when being compared to renal ultrasound results today. Discussed variability and imaging. She does report to be drinking plenty of water daily. She currently denies any bothersome urinary issues or concerns. In discussion with the patient today she reports to be doing and feeling well. She denies urinary urgency, urinary frequency, incontinence, nocturia, hematuria, dysuria, foul smelling urine, changes to urinary stream, flank pain, fever, and or chills. She is happy with her current voiding parameters. Discussed at length potential causes of nephrolithiasis. Discussed surveillance monitoring. She otherwise offers no other issues or concerns at this time. [facility] Medical History Osteopenia Hypercholesterolemia Migraine Surgical History Hx of appendectomy History of hysterectomy History of laparotomy Family History Father Diabetes Hypertension Skin cancer Mother Hypertension Skin cancer Brother No problems noted. Brother No problems noted. Social History Housing: House Alcohol intake: never Patient Tobacco Use Status: Never used Tobacco e-Cigarette/Vaping Use: Never Used service: No Current occupational status: employed Cognitive needs: No Hearing needs: No Vision needs: Yes Review of Systems Eyes Reports no additional complaints ENT Reports no additional complaints Card Reports as per HPI Resp Reports no additional complaints GI Reports no additional complaints Reports as per HPI Musc Reports as per HPI Neuro Reports as per HPI Psych Reports no additional complaints Endo Reports no additional complaints Efra/Lymph Reports no additional complaints Aller/Immun Reports no additional complaints Physical Exam Const General: cooperative, healthy appearing, comfortable, no acute distress, well developed, alert and awake Orientation/consciousness: patient oriented x3 Resp Effort & Inspection: normal respiratory effort and able to speak in complete sentences Neuro General: patient oriented x3 Psych Appearance: grossly normal and well kempt Speech and movement: Clear speech present Affect: normal affect Attitude: cooperative Thought process: Normal thought process present Thought content: Normal thought content present Insight: Fair insight present (Psych) Judgement: Fair judgement present (Psych) Telehealth Telehealth [facility]health [facility] Location of provider rendering services: practice address Location of patient: address on file Patient Identification confirmed using: Name, : Yes Telehealth method: video Patient verbally consented to treatment: Yes Patient verbally consented to billing insurance company: Yes Patient informed of any privacy concerns related to visit: Yes Minutes spent on Phone/Video with Pt.: 15 Results Reviewed Results Reviewed: Date of Service: 12/30/23 EXAMINATION: US RETROPERITONEAL LIMITED (RENAL ONLY) FINDINGS: RIGHT KIDNEY: 10.0 x 3.7 x 4.3 cm (SAG x AP x TRV). The kidney is normal in size, contour, and echogenicity. Renal cortical thickness is normal. There are 2 echogenic foci measuring 3 mm in size in the mid kidney consistent with non-obstructing calculi. No stones are seen on the 06/26/2023 CT scan. No focal parenchymal lesions or hydronephrosis. LEFT KIDNEY: 10.9 x 4.5 x 4.5 cm (SAG x AP x TRV). The kidney is normal in size, contour, and echogenicity. Renal cortical thickness is normal. No calculi or focal parenchymal lesions. No hydronephrosis. IMPRESSION: Non-obstructing right renal calculi. Assessment & Plan Assessment & Plan (1) Nephrolithiasis: Code(s): N20.0 - Calculus of kidney Category: Medical Plan In office urinalysis results reviewed with the patient today; as noted above. Recent renal imaging results reviewed with the patient today; as noted above Discussed at length potential causes of nephrolithiasis. Patient denies any bothersome urinary issues or concerns at this time. She reports be happy with current voiding parameters. Discussed further metabolic workup with 24 hour urine collection and labs. Discussed, educated, and stressed the importance of continuing to drink plenty of water daily. Will obtain renal ultrasound in 1 year Follow-up in 1 year with imaging to be completed prior; or sooner with any issues, concerns, and or questions. Orders: Orders US renal BI 1 Year N20.0 - Calculus of kidney Patient Instructions: The patient had an opportunity to ask questions regarding the treatment plan. All questions were answered. Physical exam, labs, and imaging were discussed and reviewed in detail. As well as risks, benefits, and discussion of treatment choices. No major barriers to understanding were identified. The patient expressed understanding and agreement with the above treatment plan. The patient was made aware they should contact our office by phone for worsening of their current condition, the appearance of new symptoms, or with any questions or concerns. Compliance is encouraged with any medications and follow up testing that is ordered. It is a privilege to be allowed the opportunity to participate in? your urological care.? Again, if you have any questions or concerns If you have any questions or concerns please do not hesitate to contact me. The office is [phone]. This note is constructed using voice recognition software. While every effort has been made to ensure accuracy performance analyst errors may have been included. Yours sincerely, DANIEL Pastrana Coding Level of Care Code Tele Est Pt Level 3 (39667) Diagnoses Nephrolithiasis N20.0
== END 2024-01-08 10:47 | disposition home or self-care (01) ==
LOC: HO.HUSH 09:48
PROVIDERS: PCP Internal Medicine; Visit Provider Nurse Practitioner Family
DX: N20.0 Calculus of kidney (principal)
CPT/HCPCS: 99213

== ENCOUNTER → 2024-01-08 09:48 | Outpatient (BNVA) | payer BC, SELFPAY | PROVIDERS: PCP Internal Medicine; Visit Provider Nurse Practitioner Family ==

== ENCOUNTER 2024-03-31 08:16 | Outpatient (REF) | payer BC, SELFPAY ==
[2024-03-31 10:47] LABS: MANUAL DIFF FLAG NO
[2024-03-31 10:54] LABS: Appearance Urine Cloudy; Color Urine Dark Yellow; Glucose Urine UA Negative (Negative); Leukocyte Esterase Urine Trace (Negative); Nitrite Urine Negative (Negative); PH 5.5 (5.0-9.0); UMIC TRIGGER UA YES; Urine Blood Large (3+) (Negative); Urine Ketones 15 mg/dL (Negative); Urine Protein Negative (Neg-Trace)
[2024-03-31 11:01] LABS: Bacteria Urine None Seen (None Seen); Hyaline Casts Urine 0-2 /LPF (0-2); RBC Urine >20 /HPF (0-2); Squamous Epithelial Cell Urine 0-2 /HPF (0-2); WBC Urine 0-5 /HPF (0-5)
[2024-03-31 11:03] LABS: Basophils Percent Auto 0.4 % (0-2); Eosinophils Absolute Auto 0.1 X10*3/uL (0.0-0.4); Hematocrit 36.8 % (37.0-47.0); Hemoglobin 12.5 g/dl (12.0-16.0); Imm Gran Abs Auto 0.01 X10*3/uL (0.00-0.03); Imm Gran Pct Auto 0.2 % (0.0-0.4); Lymphocytes Absolute Auto 0.6 X10*3/uL (1.2-4.9); Lymphocytes Percent Auto 12.3 % (20-40); Mean Corpuscular Hemoglobin 30.1 pg (27.0-33.0); Mean Corpuscular Volume 88.7 fL (80.0-98.0); Mean Platelet Volume 10.3 fL (9.4-12.3); Monocytes Absolute Auto 0.4 X10*3/uL (0.1-1.2); Monocytes Percent Auto 8.1 % (2-11); Neutrophils Absolute Auto 4.1 x10*3/uL (2.0-8.3); Platelet Count 170 X10*3/uL (160-400); Red Blood Count 4.15 X10*6/uL (4.20-5.50); Red Cell Distribution Width 12.2 % (11.0-16.0); White Blood Count 5.2 X10*3/uL (4.8-10.8)
[2024-03-31 11:33] LABS: Albumin Level 4.1 g/dL (3.5-5.0); Alkaline Phosphatase 50 U/L (39-117); Anion Gap 11 (12-20); Aspartate Amino Transferase 26 U/L (5-31); Bilirubin Total 0.9 mg/dL (0.0-1.0); Blood Urea Nitrogen 12 mg/dL (9-16); Calcium 8.9 mg/dL (8.4-10.2); Carbon Dioxide 27 mmol/L (22-29); Chloride 107 mmol/L (96-108); Cholesterol 188 mg/dL (<200); Estimated Glomerular Filt Rate > 60; Glucose Random 78 mg/dL (60-115); HDL Cholesterol 49 mg/dL (>40); LDL Cholesterol Calculated 121 mg/dL (<100); Phosphorus 3.5 mg/dL (2.7-4.5); Potassium 3.6 mmol/L (3.3-5.1); Sodium 141 mmol/L (135-145); Total Protein 6.8 g/dL (6.5-8.0); Triglycerides 90 mg/dL (<150)
[2024-03-31 11:36] LABS: Erythrocyte Sedimentation Rate 7 MM/HR (0-20)
[2024-03-31 11:42] LABS: Free T4 (Free Thyroxine) 0.95 ng/dL (0.71-1.85); Thyroid Stimulating Hormone 1.31 uIU/mL (0.32-4.0); Vitamin D 25-OH Total 41.9 ng/mL (>30)
[2024-03-31 11:45] LABS: Folate 15.1 ng/mL (> or = 4.0); Vitamin B12 675 pg/mL (200-900)
[2024-03-31 11:58] LABS: Alanine Aminotransferase 14 U/L (0-31)
== END 2024-03-31 08:17 | disposition home or self-care (01) ==
LOC: HO.WFDLDS 08:16
PROVIDERS: Visit Provider Internal Medicine
DX: N20.0 Calculus of kidney (principal); E78.00 Pure hypercholesterolemia, unspecified
CPT/HCPCS: 36415; 80053; 80061; 81001; 82306; 82607; 82746; 83735; 84100; 84439; 84443; 85025; 85652

== ENCOUNTER 2024-04-28 08:42 | Outpatient (AMB) | payer BC, SELFPAY ==
[2024-04-28 08:54] VITALS: BP 132/68; PULSE 80; O2SAT 98; BMI 20.5
--- NOTE | 2024-04-28 08:54 | MHC.PC.OV ---
Vital Signs 04/28/24 08:54 Height 5 ft 6 in Weight 127 lb BMI 20.5 BP 132/68 Blood Pressure Location Lt brachial Position Sitting Pulse 80 Pulse Source Pulse Oximeter Pulse Oximetry (%) 98 Oxygen Delivery Method Room Air Intake Visit Reasons: PE Allergies codeine [CODEINE] Allergy (Unknown, Verified 04/28/24 08:55) SEVERE HEADACHE Medication List - Last Reconciled 04/28/24 by Samy Toth MD alendronate (Fosamax) 70 mg PO QWEEK 30 days dqbidus-ynxhnrzabuqrl-frfwdsnv 250-250-65 mg (Excedrin Migraine) 1 tab PO Q4-6H PRN cetirizine (Zyrtec) 10 mg PO DAILY multivitamin,tx-minerals 1 tab PO DAILY turmeric mg PO Tobacco use date assessed: 10/22/23 Dental Screening Dental Screen Date: 10/22/23 HPI PE HPI Details 63-year-old female with a history of hypercholesterolemia migraine osteoporosis nephrolithiasis coming in for physical exam last seen in September 2023. Patient's mammogram is due, colonoscopy is up-to-date 2018 osteoporosis/bone density up-to-date 05/13/2023. Review of the notes has seen urology for follow-up in 01/11/2024 having had an ultrasound in December 2023 having a right renal calculi no bothersome symptoms. Advised to follow-up renal ultrasound in 1 year. [facility] Medical History Osteopenia Hypercholesterolemia Migraine Surgical History Hx of appendectomy History of hysterectomy History of laparotomy Family History Father Diabetes Hypertension Skin cancer Mother Hypertension Skin cancer Brother No problems noted. Brother No problems noted. Social History Housing: House Alcohol intake: never Patient Tobacco Use Status: Never used Tobacco Tobacco use type: Cigarette e-Cigarette/Vaping Use: Never Used Second Hand Smoke Exposure: No service: No Current occupational status: employed Cognitive needs: No Hearing needs: No Vision needs: Yes Questionnaire PHQ-9 Over the last 2 weeks, how often have you been bothered by any of the following problems? 1. Little interest or pleasure in doing things: not at all 2. Feeling down, depressed, or hopeless: not at all 3. Trouble falling or staying asleep, or sleeping too much: not at all 4. Feeling tired or having little energy: not at all 5. Poor appetite or overeating: not at all 6. Feeling bad about yourself - or that you are a failure or have let yourself or your family down: not at all 7. Trouble concentrating on things, such as reading the newspaper or watching television: not at all 8. Moving or speaking so slowly that other people could have noticed. Or the opposite - being so fidgety or restless that you have been moving around a lot more than usual: not at all 9. Thoughts that you would be better off or of hurting yourself in some way: not at all Total score: 0 Source: Developed by Drs. Alverto Begum, Flor Welch, Thang Richter and colleagues, with an educational eileen from [employer]. Thrive Questionnaire Date Thrive assessed: 04/28/24 I am a: Patient What is your living situation today?: I have a steady place to live Within the past 12 months, did the food you bought not last and you didn't have the money to get more?: Never true Within the past 12 months, did you worry whether your food would run out before you got money to buy more?: Never true Do you have trouble paying for medicines?: No Do you have trouble getting transportation to medical appointments?: No Do you have trouble paying your heating and electricity bill?: No Do you have trouble taking care of your child, family member or friend?: No Do you have trouble with day-to-day activities such as bathing, preparing meals, shopping, managing finances, etc.?: No Are you currently unemployed and looking for a job?: No Are you interested in more education?: No Please select the resources that you would like help with: None Currently or been in a relationship where the following occur: No concerns reported THRIVE Score: 0 AUDIT C Alcohol Use Questionnaire (AUDIT-C) 1. How often do you have a drink containing alcohol?: Never Total Score: 0 BIGG-7 AMB Questionnaire BIGG-7 Date BIGG - 7 assessed: 04/28/24 Feeling nervous, anxious, or on edge: 1 = Several days Not being able to stop or control worryin = Not at all Worrying too much about different things: 0 = Not at all Trouble relaxin = Not at all Being so restless that it is hard to sit still: 0 = Not at all Becoming easily annoyed or irritable: 0 = Not at all Feeling afraid as if something awful might happen: 0 = Not at all Total BIGG-7 score (0-4 normal; 5-9 mild; 10-14 moderate; 15-21 severe): 1 Source: Developed by Drs. Alverto Begum, Flor Welch, Thang Richter and colleagues, with an educational eileen from [employer]. Review of Systems Const Denies poor appetite and Denies weakness Eyes Denies no additional complaints ENT Reports Normal hearing present, Denies dizziness, Denies nasal congestion, Denies tinnitus and Denies sore throat Card Denies chest pain, Denies syncope, Denies rapid heart rate and Denies dyspnea Resp Denies cough and Denies dyspnea GI Denies change in stool character, Reports constipation, Denies diarrhea, Denies nausea and Denies vomiting Denies urinary frequency, Denies difficulty voiding and Denies dysuria Neuro Reports Normal hearing present, Denies confusion, Denies dizziness, Denies syncope and Denies weakness Psych Denies confusion Physical exam (Primary Care) Vital Signs: Last Vital Signs Pulse 80 04/28/24 08:54 BP 132/68 04/28/24 08:54 Pulse Ox 98 04/28/24 08:54 Oxygen Delivery Method Room Air 04/28/24 08:54 BMI result Body Mass Index 20.5 Tobacco/Smoking Status: Tobacco use Status Tobacco use date assessed 10/22/23 04/28/24 09:03 Patient Tobacco Use Status Never used Tobacco 04/28/24 09:03 Tobacco use type Cigarette 04/28/24 09:03 e-Cigarette/Vaping Use Never Used 04/28/24 09:03 PHQ-9: PHQ-9 Score PHQ-9: Total score 0 04/28/24 09:03 Thrive Assessment: Date of Thrive Assessment Date Thrive assessed 04/28/24 04/28/24 09:03 Currently or been in a relationship where the following occur: No concerns reported Const General: No confusion Orientation/consciousness: No confusion HENMT Head: Yes normocephalic Ears: external ears normal and TM's normal bilaterally Face and sinus: Yes normal facial exam Mouth: moist mucous membranes Throat: Yes tonsils normal Eyes Conjunctivae: conjunctivae normal Pupils: Equal, round and reactive pupils present and Pupil accommodation reflex normal Direct Ophthalmoscopy: normal light reflex Neck Neck: No lymphadenopathy Thyroid: Thyroid normal Chest Chest palpation & inspection: normal inspection of the chest Resp Effort & Inspection: normal respiratory effort and no audible wheezes Auscultation: clear to auscultation bilaterally, no crackles, no wheezes and lung sounds not diminished Cardio Rate: regular rate Rhythm: regular rhythm Peripheral pulses: radial pulses present and dorsalis pedis present GI Other: guaiac negative Palpation (GI): no masses Auscultation: normal bowel sounds and normoactive bowel sounds Rectal Exam - Female: deferred Skin General skin exam: no rashes or lesions noted Rashes: no rashes Neuro General: No confusion Cranial nerves: Yes Equal, round and reactive pupils present and Yes Normal hearing present Cognition (Neuro): normal cognition Gait exam (Neuro): Normal gait present Motor exam (neuro): 5/5 motor strength present throughout Deep tendon reflexes (DTR's): Right brachioradialis reflex intensity grade: 2+, Left brachioradialis reflex intensity grade: 2+, Right patellar reflex intensity grade: 2+ and Left patellar reflex intensity grade: 2+ Extrem General: No edema Coding Level of Care Code Est Pt Prev Care 40-64y(76641) Diagnoses Physical exam, annual Z. Hypercholesterolemia E78.00 Migraine without status migrainosus, not intractable, unspecified migraine type G43.909 Migraine type: unspecified Status migrainosus presence: without status migrainosus Intractability: not intractable Age related osteoporosis, unspecified pathological fracture presence M81.0 Osteoporosis type: age-related Presence of current pathological fracture: unspecified Right renal stone N20.0 Assessment & Plan Assessment & Plan (1) Physical exam, annual: Code(s): Z00. - Encounter for general adult medical examination without abnormal findings Category: Medical Plan: Patient is advised to eat healthy, keep well hydrated, keep active and have adequate sleep. (2) Hypercholesterolemia: Code(s): E78.00 - Pure hypercholesterolemia, unspecified Category: Medical Plan: Avoid fried foods, chicken skin, eggs, butter margarine, pastries and meat. Be it pork or beef they have a lot of cholesterol LDL goal of less than 130 and triglyceride of less than 150. 04/12/2024 blood work at goal. (3) Migraine: Code(s): G43.909 - Migraine, unspecified, not intractable, without status migrainosus Category: Medical Qualifiers: Migraine type: unspecified Status migrainosus presence: without status migrainosus Intractability: not intractable Qualified Code(s): G43.909 - Migraine, unspecified, not intractable, without status migrainosus Plan: Patient is advised to eat healthy, keep well hydrated, keep active and have adequate sleep. (4) Osteoporosis: Comment: April Code(s): M81.0 - Age-related osteoporosis without current pathological fracture Category: Medical Qualifiers: Osteoporosis type: age-related Presence of current pathological fracture: unspecified Qualified Code(s): M81.0 - Age-related osteoporosis without current pathological fracture Plan: Discussed about calcium vitamin-D and keeping active. Discussed about other medications to help with bone density. (5) Right renal stone: Comment: February right renal calculi. CT scan July 13- Code(s): N20.0 - Calculus of kidney Category: Medical Plan: Patient follows up with urology and ultrasound renal 1 year. Keep well hydrated Orders: Orders Urine Cytology 1 Year N20.0 - Calculus of kidney Complete Blood Count Auto Diff 1 Year E78.00 - Pure hypercholesterolemia, unspecified Comprehensive Met. Panel 1 Year E78.00 - Pure hypercholesterolemia, unspecified Vitamin B12 and Folate 1 Year E78.00 - Pure hypercholesterolemia, unspecified Vitamin D 25-OH Total 1 Year E78.00 - Pure hypercholesterolemia, unspecified XR DEXA axial skeleton 1 Year M81.0 - Age-related osteoporosis without current pathological fracture UA w Microscopic 1 Year N20.0 - Calculus of kidney Free T4 (Free Thyroxine) 1 Year E78.00 - Pure hypercholesterolemia, unspecified Lipid Panel 1 Year E78.00 - Pure hypercholesterolemia, unspecified Magnesium 1 Year E78.00 - Pure hypercholesterolemia, unspecified
== END 2024-04-28 09:43 | disposition home or self-care (01) ==
LOC: HO.HMCH 08:42
PROVIDERS: PCP Internal Medicine; Visit Provider Internal Medicine
DX: Z00.00 Encounter for general adult medical examination without abnormal findings (principal); E78.00 Pure hypercholesterolemia, unspecified; G43.909 Migraine, unspecified, not intractable, without status migrainosus; M81.0 Age-related osteoporosis without current pathological fracture; N20.0 Calculus of kidney

== ENCOUNTER → 2024-06-05 10:07 | Outpatient (AMB) | payer BC, SELFPAY ==
--- NOTE | 2024-06-05 10:09 | MHC.OFFWIV ---
Intake Vital Signs 06/05/24 10:13 Height 5 ft 6 in Weight 135 lb BMI 21.8 BP 124/68 Blood Pressure Location Lt brachial Position Sitting Respiration 12 Pulse 79 Pulse Source Pulse Oximeter Temp 97.1 F Temp Source Oral Pulse Oximetry (%) 99 Oxygen Delivery Method Room Air Intake Visit Reasons: est/ bite/itch on left foot Intake Note: Patient complaining of bite on left foot, swelling and itchy foot this morning but fourth time this month. Patient Tobacco Use Status: Never used Tobacco Allergies codeine [CODEINE] Allergy (Unknown, Verified 06/05/24 10:31) SEVERE HEADACHE Medication List - Last Reconciled 06/05/24 by Eulalia Panda, QUANTOMETER OPERATOR-BC alendronate (Fosamax) 70 mg PO QWEEK 30 days rxkomfh-xjqlxjehrsqod-uabdsjpx 250-250-65 mg (Excedrin Migraine) 1 tab PO Q4-6H PRN cetirizine (Zyrtec) 10 mg PO DAILY multivitamin,tx-minerals 1 tab PO DAILY turmeric mg PO Do you need a note to return to daycare/school/sports/work: No HPI HPI Comments History of Present Illness Details History of Present Illness The patient is a 64-year-old female presenting with swelling and itchiness on her left foot, specifically involving the second and third toes. This issue began approximately one month ago following what the patient suspects was an insect bite, initially resulting in swelling and itchiness. The patient self-treated with Benadryl and cortisone lotion, finding temporary relief. However, the symptoms have recurred multiple times, with swelling and itchiness manifesting in the same area. Despite self-care measures, the issue has persisted and worsened, prompting today's visit. The patient reports the development of a blister on the initial occasion, which was followed by other similar occurrences at the same site. While the swelling was less pronounced in subsequent episodes, the area was itchy with noticeable skin changes, described as callused and raw. Exploration during the current visit revealed pus and the presence of foreign material, suggesting a non-bite etiology. Self-reported factors included no new shoes or injury, and a history of possible spider exposure in the basement, though she rarely visits there. She is UTD on Tdap Physical Exam - Musculoskeletal (Left Foot)- Swelling and callus formation on the second and third toes with noted pus upon examination. The tissue underneath appeared healthy and well-vascularized after cleaning see picture Plan - Initiate antibiotic therapy with Cephalexin 500 mg orally twice daily for 7 days. - Advise patient on daily foot soaks in Epsom salt and warm water for antiseptic management. - Instruct to maintain hygiene and dryness of the affected foot. - Educate patient to refrain from applying cortisone unnecessarily, using only if itchiness is significant. - Plan to monitor the response to antibiotics and seek further medical evaluation should the condition not improve or exacerbate. Patient was informed and verbally consented to the use of an ambient scribe for clinic note documentation during this visit. This note is constructed using voice recognition software. While every effort has been made to ensure accuracy in major donor coordinator, still errors may have been included Sometimes, these errors may affect the content or meaning of the given sentence . Total time spent caring for the patient today was 30 minutes. This includes time spent before the visit reviewing the chart, time spent during the visit, and time spent after the visit on documentation [facility] Medical History Osteopenia Hypercholesterolemia Migraine Surgical History Hx of appendectomy History of hysterectomy History of laparotomy Family History Father Diabetes Hypertension Skin cancer Mother Hypertension Skin cancer Brother No problems noted. Brother No problems noted. Social History Housing: House Alcohol intake: never Patient Tobacco Use Status: Never used Tobacco Tobacco use type: Cigarette e-Cigarette/Vaping Use: Never Used Second Hand Smoke Exposure: No service: No Current occupational status: employed Cognitive needs: No Hearing needs: No Vision needs: Yes Physical Exam Vital Signs: Last Vital Signs Temp 97.1 F 06/05/24 10:13 Pulse 79 06/05/24 10:13 Resp 12 06/05/24 10:13 BP 124/68 06/05/24 10:13 Pulse Ox 99 06/05/24 10:13 Oxygen Delivery Method Room Air 06/05/24 10:13 BMI result Body Mass Index 21.8 Assessment & Plan Assessment & Plan (1) Foot infection: Code(s): L08.9 - Local infection of the skin and subcutaneous tissue, unspecified Plan . Medications: New cephalexin 500 mg PO Q12H 14 caps 0RF 7 days Coding Level of Care Code Est Pt Level 4 (83829) Diagnoses Foot infection L08.9
[2024-06-05 10:13] VITALS: BP 124/68; PULSE 79; RESP 12; TEMP 36.2; O2SAT 99; BMI 21.8
== END ==
LOC: HO.HMCWIW 10:07
PROVIDERS: PCP Internal Medicine; Visit Provider Nurse Practitioner Family
DX: L08.9 Local infection of the skin and subcutaneous tissue, unspecified (principal)

== ENCOUNTER 2024-06-15 08:22 | Outpatient (AMB) | payer BC, SELFPAY ==
--- NOTE | 2024-06-15 09:28 | MHC.OFFWIV ---
Intake Vital Signs 06/15/24 09:29 Weight 136 lb BP 122/80 Blood Pressure Location Rt brachial Position Sitting Pulse 77 Pulse Source Pulse Oximeter Pulse Oximetry (%) 99 Oxygen Delivery Method Room Air Intake Visit Reasons: EP LT foot swelling, itching Intake Note: Patient here for left foot swelling and itching which has been on and off since april Patient Tobacco Use Status: Never used Tobacco Allergies codeine [CODEINE] Allergy (Unknown, Verified 06/15/24 09:31) SEVERE HEADACHE Do you need a note to return to daycare/school/sports/work: No HPI HPI Comments History of Present Illness Details History of Present Illness The patient is a 64-year-old female presenting with recurrent itching and swelling of the 3rd toe of her left foot. The symptoms initially appeared around May 05, associated with localized itchiness and swelling under the middle toe of the left foot, which the patient suspected to be a spider bite. Rfib-fqr-eljoifc treatments with Benadryl and Cortisone 10 relieved the initial symptoms. The condition recurred several times, manifesting on different toes of the left foot, with the most recent episode starting on June 05. The patient was initially evaluated at [facility], where an infection was discovered following the drainage of a pustule. She was prescribed Cephalexin 500 mg twice daily for seven days alongside Epsom salt foot soaks. Despite completing the antibiotic course on June 11, the swelling and itching have persisted, with new vesicular lesions noted which are weeping. Physical Exam General: Cooperative, healthy appearing, comfortable, no acute distress and well developed Orientation: Patient oriented x3 Limitations: No limitations Head: Normal to inspection Ears: Hearing grossly normal bilaterally Nose: Normal external nose present Face and sinus: Normal facial exam Eyes: Appearance normal, both eyes and all related structures Neck: Normal visual inspection and Yes full ROM Respiratory: Normal respiratory effort and able to speak in complete sentences. Skin: Clear liquid noted on left foot 3rd digit, with slight swelling, slight erythema and a small scab, no warmth noted. No rashes or lesions noted elsewhere. Neuro: Patient oriented x3 Extremities: Swelling and itching noted on the left foot, particularly around the toes. Clear liquid noted from the right leg. [facility] Medical History Osteopenia Hypercholesterolemia Migraine Surgical History Hx of appendectomy History of hysterectomy History of laparotomy Family History Father Diabetes Hypertension Skin cancer Mother Hypertension Skin cancer Brother No problems noted. Brother No problems noted. Social History Housing: House Alcohol intake: never Patient Tobacco Use Status: Never used Tobacco Tobacco use type: Cigarette e-Cigarette/Vaping Use: Never Used Second Hand Smoke Exposure: No service: No Current occupational status: employed Cognitive needs: No Hearing needs: No Vision needs: Yes Review of Systems Const All systems reviewed & are unremarkable except as noted in HPI and below Physical Exam Vital Signs: Last Vital Signs Pulse 77 06/15/24 09:29 BP 122/80 06/15/24 09:29 Pulse Ox 99 06/15/24 09:29 Oxygen Delivery Method Room Air 06/15/24 09:29 Assessment & Plan Assessment & Plan (1) Vesicles: Code(s): R23.8 - Other skin changes Plan: Plan - Viral swab of the affected area to rule out viral etiology. - Discuss antifungal treatment using topical agents, specifically those with active ingredients ending in 'azole,' such as Clotrimazole, Miconazole. - Recommendation to stop Epsom salt soaks, as no open wounds are present. - Consideration of differential diagnosis including viral, fungal, and potential non-bacterial causes, pending swab results. - Patient to continue with antihistamines like Benadryl to manage swelling if it provides relief. - Await the viral culture results before determining further treatment steps. - Quality Assurance Calibrator on signs of worsening infection and instruction to return if condition deteriorates. Patient was informed and verbally consented to the use of an ambient scribe for clinic note documentation during this visit. Orders: Orders Viral Culture Today R23.8 - Other skin changes Coding Level of Care Code Est Pt Level 4 (37966) Diagnoses Vesicles R23.8
[2024-06-15 09:29] VITALS: BP 122/80; PULSE 77; O2SAT 99
== END 2024-06-15 10:05 | disposition home or self-care (01) ==
PROVIDERS: PCP Internal Medicine; Visit Provider Physician Assistant
DX: R23.8 Other skin changes (principal)

== ENCOUNTER 2024-06-15 09:53 | Outpatient (REF) | payer BC, SELFPAY | END 2024-06-15 09:54 | disposition home or self-care (01) | LOC: HO.LAB 09:53 | PROVIDERS: Visit Provider Physician Assistant | DX: R23.8 Other skin changes (principal) | CPT/HCPCS: 36415; 87252; 87255 ==

== ENCOUNTER 2024-06-15 11:05 | Outpatient (REF) | payer BC, SELFPAY ==
--- NOTE | ~2024-06-15 | US_ITS ---
EXAMINATION: US SCREENING ULTRASOUND BREAST, BILATERAL CLINICAL INFORMATION: Dense breasts on mammography. Screening ultrasound. COMPARISON: None available. TECHNIQUE: Ultrasound is performed using grayscale imaging and color Doppler. Imaging is performed to include the four quadrants and retroareolar region. Both breasts are imaged. FINDINGS: Right breast: There is no suspicious finding by ultrasound. There is no solid mass or focal architectural abnormality. Left breast: There is no suspicious finding by ultrasound. There is no solid mass or focal architectural abnormality. US/US breast BI complete IMPRESSION: No suspicious findings on screening breast ultrasound. ASSESSMENT: BI-RADS 1 - Negative RECOMMENDATION: 1 year F/U This patient's information was entered into a reminder system with a target due date for their next mammogram. Electronically signed by: Neelam Raygoza DO 06/15/2024 11:42 AM [place]
== END 2024-06-15 11:06 | disposition home or self-care (01) ==
LOC: HO.MAMMO 11:05
PROVIDERS: Absent Provider Obstetrics & Gynecology; PCP Internal Medicine; Visit Provider Internal Medicine
DX: R92.30 Dense breasts, unspecified (principal)
CPT/HCPCS: 76641

== ENCOUNTER → 2024-06-15 11:08 | Outpatient (BNV) | payer BC, SELFPAY | PROVIDERS: Absent Provider Obstetrics & Gynecology; PCP Internal Medicine; Visit Provider Internal Medicine | DX: R92.30 Dense breasts, unspecified (principal) | CPT/HCPCS: 76641 ==

== ENCOUNTER 2024-07-02 08:29 | Outpatient (AMB) | payer OTHER, SELFPAY ==
[2024-07-02 08:37] VITALS: BP 104/78; PULSE 65; TEMP 36.4; O2SAT 96; BMI 21.7
--- NOTE | 2024-07-02 08:37 | MHC.PC.OV ---
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 by: Self / Same As Patient Allergies codeine [CODEINE] Allergy (Unknown, Verified 07/10/24 02:13) SEVERE HEADACHE Medication List - Last Reconciled 07/02/24 by NAKITA Cee alendronate (Fosamax) 70 mg PO QWEEK 30 days rxzjtxw-lhbedmynreidz-xhljconn 250-250-65 mg (Excedrin Migraine) 1 tab PO Q4-6H PRN cetirizine (Zyrtec) 10 mg PO DAILY multivitamin,tx-minerals 1 tab PO DAILY turmeric mg PO Tobacco use date assessed: 07/02/24 Dental Screening Dental Screen Date: 07/02/24 Did you have a dental visit in the last 12 months?: Yes Did you have a dental problem in the last 6 months where you did not have access to dental care?: No Was dental information given to patient?: Patient has dentist HPI on going blister on LT foot HPI Details The patint is 64 year old female with with past medical history of hypercholesterolemia, osteoporosis, nephrolithiasis and dense breasts. The patient is a patient of Dr. Toth, she was last seen in the office for CPE. CHART REVIEW: Patient was seen in a walk-in clinic on 06/05/24 for left foot infection. The patient reported that she thought it might have been a spider bite, and was prescribed Keflex 500 mg q.12 hours x7 days p.o. On 06/15/24, the patient went back to the walk-in clinic for left foot recurrent blister/wound. The area was swabbed for viral culture which was negative. Per note, there was a discussion of topical antifungal regimen. Per patient, she was prescribed clotrimazole cream that she has been using twice a day. She reports that he area develops a blister on and off and becomes swollen, then will get better with treatment and reoccurs after treatment is completed. She added that the recurrences are her 10 days apart. She reports initially the area started out looking like a callus then develops a blister on top of the callus apparent area. At the walk-in clinic, she was told that the fluid within the blister was clear. She has not seen the color of the fluid because the area usually pops while she sleeps. She reports that the area is not painful, but gets itchy on and off. Patient reports that the area looks like it is healing right now. This has been the trend, it heals up and reappears. Reports that the blister popped 3 days ago. She is concerned because the area keeps reappearing. -The patient is planning on leaving to [place] and is only sticking around to figure out what is going on with he let foot [facility] Medical History Osteopenia Hypercholesterolemia Migraine Surgical History Hx of appendectomy History of hysterectomy History of laparotomy Family History Father Diabetes Hypertension Skin cancer Mother Hypertension Skin cancer Brother No problems noted. Brother No problems noted. Social History Housing: House Alcohol intake: never Patient Tobacco Use Status: Never used Tobacco Tobacco use type: Cigarette e-Cigarette/Vaping Use: Never Used Second Hand Smoke Exposure: No service: No Current occupational status: employed Current occupational exposures/hazards: No Cognitive needs: No Hearing needs: No Vision needs: Yes Questionnaire PHQ-9 Over the last 2 weeks, how often have you been bothered by any of the following problems? 1. Little interest or pleasure in doing things: not at all 2. Feeling down, depressed, or hopeless: not at all 3. Trouble falling or staying asleep, or sleeping too much: not at all 4. Feeling tired or having little energy: not at all 5. Poor appetite or overeating: not at all 6. Feeling bad about yourself - or that you are a failure or have let yourself or your family down: not at all 7. Trouble concentrating on things, such as reading the newspaper or watching television: not at all 8. Moving or speaking so slowly that other people could have noticed. Or the opposite - being so fidgety or restless that you have been moving around a lot more than usual: not at all 9. Thoughts that you would be better off or of hurting yourself in some way: not at all Total score: 0 Depression Screening Interpretation: Negative Depression Screening Done: Yes 94173 - PHQ-9 Billing: Yes Source: Developed by Drs. Alverto Begum, Flor Welch, Thang Richter and colleagues, with an educational eileen from [employer]. Thrive Questionnaire Date Thrive assessed: 07/02/24 I am a: Patient What is your living situation today?: I have a steady place to live Within the past 12 months, did the food you bought not last and you didn't have the money to get more?: Never true Within the past 12 months, did you worry whether your food would run out before you got money to buy more?: Never true Do you have trouble paying for medicines?: No Do you have trouble getting transportation to medical appointments?: No Do you have trouble paying your heating and electricity bill?: No Do you have trouble taking care of your child, family member or friend?: No Do you have trouble with day-to-day activities such as bathing, preparing meals, shopping, managing finances, etc.?: No Are you currently unemployed and looking for a job?: No Are you interested in more education?: No Please select the resources that you would like help with: None Currently or been in a relationship where the following occur: No concerns reported THRIVE Score: 0 AUDIT C Alcohol Use Questionnaire (AUDIT-C) 1. How often do you have a drink containing alcohol?: Never 3. How often do you have six or more drinks on one occasion?: Never Total Score: 0 Score Reviewed/Action Taken: Yes BIGG-7 AMB Questionnaire BIGG-7 Date BIGG - 7 assessed: 04/28/24 Source: Developed by Drs. Alverto Begum, Flor Welch, Thang Richter and colleagues, with an educational eileen from [employer]. Review of Systems Const Details: Const Denies chills, Denies fatigue, Denies fever(s), Denies headache(s) and Denies weakness ENT Denies dizziness and Denies headache(s) Card Denies chest pain, Denies lightheadedness, Denies dyspnea and Denies other (Palpitations) Resp Denies cough, Denies dyspnea, Denies wheezing and Denies other ( shortness of breath) GI Denies abdominal pain, Denies melena, Denies hematochezia, Denies change in bowel habits, Denies dyspepsia and Denies nausea Denies hematuria and Denies dysuria Musc Denies abnormal gait, Denies myalgias, Denies arthralgias, Denies numbness and Denies tingling Skin/Breast Same as HPI Neuro Denies abnormal gait, Denies dizziness, Denies headache(s), Denies memory loss, Denies numbness, Denies Sensory deficit (Neuro), Denies tingling and Denies weakness Psych Denies anxiety, Denies depression, Denies memory loss Endo Denies cold intolerance, Denies fatigue, Denies heat intolerance, Denies polydipsia and Denies polyuria Aller/Immun Denies wheezing Physical exam (Primary Care) Vital Signs: Last Vital Signs Temp 97.5 F 07/02/24 08:37 Pulse 65 07/02/24 08:37 BP 104/78 07/02/24 08:37 Pulse Ox 96 07/02/24 08:37 Oxygen Delivery Method Room Air 07/02/24 08:37 BMI result Body Mass Index 21.7 Tobacco/Smoking Status: Tobacco use Status Tobacco use date assessed 07/02/24 07/02/24 08:45 Patient Tobacco Use Status Never used Tobacco 07/02/24 08:45 Tobacco use type Cigarette 07/02/24 08:45 e-Cigarette/Vaping Use Never Used 07/02/24 08:45 PHQ-9: PHQ-9 Score PHQ-9: Total score 0 07/02/24 14:55 Depression Screening Interpretation: Negative Thrive Assessment: Date of Thrive Assessment Date Thrive assessed 07/02/24 07/02/24 08:45 Currently or been in a relationship where the following occur: No concerns reported Const Other: General: no acute distress and well developed Nutritional Appearance: well nourished Orientation/consciousness: patient oriented x3 HENMT Head: Yes normocephalic and Yes atraumatic Eyes General: appearance normal, both eyes and all related structures Pupils: Equal, round and reactive pupils present EOM: EOMs intact bilaterally Resp Effort & Inspection: normal respiratory effort Auscultation: clear to auscultation bilaterally Cardio Rate: regular rate Rhythm: regular rhythm Heart sounds: S1 normal heart sound present, S2 normal heart sound present, no gallops, no murmurs and no rubs GI Palpation (GI): No Abdominal aortic bruit present, Soft to palpation, nontender, No hepatosplenomegaly present and No Rebound tenderness present Auscultation: normal bowel sounds General: Yes no CVA tenderness Back/Spine/Pelvis Back: no CVA tenderness Cervical Spine: cervical ROM normal and No Cervical spine tenderness Thoracic/Lumbar Spine: thoraco-lumbar ROM normal, No pain with thoraco-lumbar ROM, No thoracic spinal tenderness and No lumbar spinal tenderness Extrem General: Yes normal to inspection, No edema and No calf tenderness Skin General: warm and dry. Normal skin color. Normal skin turgor Left plantar foot, inferior, middle of 2nd and 3rd digits, light brownish, with erythematous areas in the middle, raised, scab-appearing/healing area. No pain to palpation, no drainage noted. Neuro General: patient oriented x3, gait normal and no focal neuro deficit Cranial nerves: Yes Equal, round and reactive pupils present Cognition (Neuro): normal cognition Gait exam (Neuro): Normal gait present Sensory Exam: No Sensory deficit (Neuro) Psych Appearance: grossly normal Affect: normal affect Attitude: cooperative Thought process: Normal thought process present Coding Level of Care Code Est Pt Level 3 (66735) Diagnoses Foot infection L08.9 Additional Codes PHQ-9 - 15294 - PHQ-9 Billing: Yes ([id number]) Assessment & Plan Assessment & Plan (1) Foot infection: Code(s): L08.9 - Local infection of the skin and subcutaneous tissue, unspecified Category: Medical Plan: Patient lesion has an unclear presentation; she was already treated with Keflex with resolution. The the lesion reappeared. Viral culture was negative, she has been using antifungal cream twice a day. Will trial patient on doxycycline 100 mg b.i.d. x 10 days and mupirocin ointment b.i.d. 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 Medications: New mupirocin 2% 1 appl topical BID 22 grams 0RF doxycycline monohydrate 100 mg PO BID 20 caps 0RF 10 days L08.9 - Local infection of the skin and subcutaneous tissue, unspecified
== END 2024-07-02 09:10 | disposition home or self-care (01) ==
PROVIDERS: PCP Internal Medicine
DX: L08.9 Local infection of the skin and subcutaneous tissue, unspecified (principal)

== ENCOUNTER → 2024-07-02 08:29 | Outpatient (BNVA) | payer OTHER, SELFPAY | PROVIDERS: PCP Internal Medicine | DX: L08.9 Local infection of the skin and subcutaneous tissue, unspecified (principal) | CPT/HCPCS: 96127 ==

== ENCOUNTER 2024-07-09 08:20 | Outpatient (AMB) | payer OTHER, SELFPAY ==
[2024-07-09 08:35] VITALS: BP 120/76; PULSE 70; TEMP 36.2; O2SAT 99; BMI 21.6
--- NOTE | 2024-07-09 08:35 | A.OFFPC_ITS ---
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 by: Spouse Allergies codeine [CODEINE] Allergy (Unknown, Verified 07/10/24 02:13) SEVERE HEADACHE Medication List - Last Reconciled 07/10/24 by Doc Evans MD alendronate (Fosamax) 70 mg PO QWEEK 30 days aywdbhr-splqtvtfyaxbs-gcfuuxet 250-250-65 mg (Excedrin Migraine) 1 tab PO Q4-6H PRN cetirizine (Zyrtec) 10 mg PO DAILY multivitamin,tx-minerals 1 tab PO DAILY mupirocin 2% 1 appl topical BID turmeric mg PO Tobacco use date assessed: 07/02/24 Dental Screening Dental Screen Date: 07/02/24 HPI 1 Week F/U HPI Details The patint is 64 year old female with with past medical history of hypercholesterolemia, osteoporosis, nephrolithiasis and dense breasts. The patient is a patient of Dr. Toth, she was last seen in the office for CPE in April 2024 CHART REVIEW: Patient was seen in a walk-in clinic on 06/05/24 for left foot infection. The patient reported that she thought it might have been a spider bite, and was prescribed Keflex 500 mg q.12 hours x7 days p.o. On 06/15/24, the patient went back to the walk-in clinic for left foot recurrent blister/wound. The area was swabbed for viral culture which was negative. Per note, there was a discussion of topical antifungal regimen. Per patient, she was prescribed clotrimazole cream that she has been using twice a day. She reports that he area develops a blister on and off and becomes swollen, then will get better with treatment and reoccurs after treatment is completed. She added that the recurrences are her 10 days apart. She reports initially the area started out looking like a callus then develops a blister on top of the callus apparent area. At the walk-in clinic, she was told that the fluid within the blister was clear. She has not seen the color of the fluid because the area usually pops while she sleeps. She reports that the area is not painful, but gets itchy on and off. Patient reports that the area looks like it is healing right now. This has been the trend, it heals up and reappears. Reports that the blister popped 3 days ago. She is concerned because the area keeps reappearing. ----Patient is presenting for a one-week follow up appointment. The patient was able to complete 9 doses of the doxycycline 100 mg. Before developing a headache, nausea and vomiting x1. Patient call the office with concerns of the side effects of the antibiotics. Recommended for the patient to stop taking antibiotics and if the infection persist another antibiotics could be started. Foot exam shows no signs of infection (a dried up scab is present). The patient is pleased that the area is looking better but is also concerned that it might reappear. She would like to get a 2nd opinion for a peace of mind so she can enjoy her time in [place]. Will refer the patient to podiatry. -The patient is planning on leaving to [facility] and is only sticking around to figure out what is going on with her left foot [facility] Medical History Osteopenia Hypercholesterolemia Migraine Surgical History Hx of appendectomy History of hysterectomy History of laparotomy Family History Father Diabetes Hypertension Skin cancer Mother Hypertension Skin cancer Brother No problems noted. Brother No problems noted. Social History Housing: House Alcohol intake: never Patient Tobacco Use Status: Never used Tobacco Tobacco use type: Cigarette e-Cigarette/Vaping Use: Never Used Second Hand Smoke Exposure: No service: No Current occupational status: employed Current occupational exposures/hazards: No Cognitive needs: No Hearing needs: No Vision needs: Yes Questionnaire Thrive Questionnaire Date Thrive assessed: 07/02/24 BIGG-7 AMB Questionnaire BIGG-7 Date BIGG - 7 assessed: 04/28/24 Source: Developed by Drs. Alverto Begum, Flor Thang Raza and colleagues, with an educational eileen from [employer]. Review of Systems Const Details: Denies chills, Denies fatigue, Denies fever(s), Denies headache(s) and Denies weakness HEENT Denies change in vision, Denies dizziness, Denies headache(s), Denies hearing loss, Denies nasal congestion, Denies sinus pain, Denies sinus pressure and Denies sore throat Card Denies chest pain, Denies lightheadedness, Denies dyspnea and Denies other (palpitations) Resp Denies cough, Denies dyspnea and Denies wheezing Musc Denies abnormal gait, Denies myalgias, Denies arthralgias, Denies numbness and Denies tingling Skin/Breast same as HPI Physical exam (Primary Care) Vital Signs: Last Vital Signs Temp 97.1 F 07/09/24 08:35 Pulse 70 07/09/24 08:35 BP 120/76 07/09/24 08:35 Pulse Ox 99 07/09/24 08:35 Oxygen Delivery Method Room Air 07/09/24 08:35 BMI result Body Mass Index 21.6 Tobacco/Smoking Status: Tobacco use Status Tobacco use date assessed 07/02/24 07/09/24 08:44 Patient Tobacco Use Status Never used Tobacco 07/09/24 08:44 Tobacco use type Cigarette 07/09/24 08:44 e-Cigarette/Vaping Use Never Used 07/09/24 08:44 Thrive Assessment: Date of Thrive Assessment Date Thrive assessed 07/02/24 07/09/24 08:44 Const Other: General: no acute distress, well developed, alert and awake Nutritional Appearance: well nourished Orientation/consciousness: patient oriented x3 HENMT Head: Yes normocephalic and Yes atraumatic Eyes Pupils: Equal, round and reactive pupils present and Pupil accommodation reflex normal Neck Neck: Yes normal visual inspection, Yes no lymphadenopathy and Yes trachea midline Thyroid: Thyroid normal Chest Chest palpation & inspection: normal inspection of the chest Resp Effort & Inspection: normal respiratory effort Auscultation: clear to auscultation bilaterally Cardio Rate: regular rate Rhythm: regular rhythm Heart sounds: S1 normal heart sound present, S2 normal heart sound present, no gallops, no murmurs and no rubs Skin General: warm and dry. Normal skin color. Normal skin turgor Lesions: Left plantar foot, inferior, middle of 2nd and 3rd digits, light brown, raised, scab-appearing/healing area. No pain to palpation, no drainage noted. Neuro General: patient oriented x3, gait normal Cranial nerves: Yes Equal, round and reactive pupils present Cognition (Neuro): normal cognition Gait exam (Neuro): Normal gait present Extrem General: Yes normal to inspection, No edema and No calf tenderness Psych Appearance: grossly normal Affect: normal affect Attitude: cooperative Thought process: Normal thought process present Coding Level of Care Code Est Pt Level 3 (01704) Diagnoses Foot infection L08.9 Time Spent (min) 21 Assessment & Plan Assessment & Plan (1) Foot infection: Code(s): L08.9 - Local infection of the skin and subcutaneous tissue, unspecified Category: Medical Plan: Patient lesion has an unclear presentation; she was already treated with Keflex with resolution. The the lesion reappeared. Viral culture was negative, she has been using antifungal cream twice a day. Will trial patient on doxycycline 100 mg b.i.d. x 10 days and mupirocin ointment b.i.d. ----The patient completed 9 doses of the doxycycline and developed headaches, nausea and vomiting x1. Was recommended the patient to stop antibiotics and if the infection reappears, she could be placed on a different antibiotic. The area is without signs of infection at this time. A healing scabbed area is present. The patient was referred the podiatry for a 2nd opinion. Plan To return as scheduled in May 2025 for her annual physical examination with her PCP
== END 2024-07-09 09:11 | disposition home or self-care (01) ==
PROVIDERS: PCP Internal Medicine
DX: L08.9 Local infection of the skin and subcutaneous tissue, unspecified (principal)

== ENCOUNTER 2024-10-05 09:17 | Outpatient (REF) | payer OTHER, SELFPAY ==
[2024-10-05 13:08] LABS: HBS Num1 1.03 mIU/mL (0-7.99); HBsAGNum1 0.31 S/CO (0.00-0.99); Hepatitis B Core Antibody Nonreactive (Nonreactive); Hepatitis B Surface Antigen Negative (Negative); ~HepC Num1 0.14 S/CO (0.00-0.79); ~Hepatitis B Surface Antibody NONREACTIVE (Nonreactive); ~Hepatitis C Antibody Nonreactive (Nonreactive)
[2024-10-06 09:58] LABS: Rubella IgG Antibody 7.57 Index
== END 2024-10-05 09:18 | disposition home or self-care (01) ==
LOC: HO.WFDLDS 09:17
PROVIDERS: Visit Provider Internal Medicine
DX: Z02.0 Encounter for examination for admission to educational institution (principal); G43.909 Migraine, unspecified, not intractable, without status migrainosus; R79.89 Other specified abnormal findings of blood chemistry
CPT/HCPCS: 36415; 86704; 86706; 86735; 86762; 86765; 86787; 86803; 87340

== ENCOUNTER 2024-11-30 10:08 | Outpatient (REF) | payer OTHER, SELFPAY | END 2024-11-30 10:09 | disposition home or self-care (01) | LOC: HO.MAMMO 10:08 | PROVIDERS: PCP Internal Medicine; Referring Provider Obstetrics & Gynecology; Visit Provider Internal Medicine | DX: Z12.31 Encounter for screening mammogram for malignant neoplasm of breast (principal) | CPT/HCPCS: 77063; 77067 ==

== ENCOUNTER → 2024-11-30 10:30 | Outpatient (BNV) | payer OTHER, SELFPAY | PROVIDERS: PCP Internal Medicine; Referring Provider Obstetrics & Gynecology; Visit Provider Internal Medicine | DX: Z12.31 Encounter for screening mammogram for malignant neoplasm of breast (principal) | CPT/HCPCS: 77063; 77067 ==

== ENCOUNTER 2024-12-22 10:45 | Outpatient (REF) | payer OTHER, SELFPAY ==
--- NOTE | ~2024-12-22 | US_ITS ---
EXAMINATION: Ultrasound renal bilaterally. CLINICAL INFORMATION: Calculus of kidney. COMPARISON: December 30, 2023. TECHNIQUE: Real-time ultrasound of the kidneys using grayscale technique. FINDINGS: Right kidney: 10 x 4 x 5 cm. Normal echotexture. Normal renal cortical thickness. No hydronephrosis. 3 mm hyperechoic abnormality in the midportion. No gross solid or cystic lesion. Left kidney: 11 x 5 x 4 cm. Normal echotexture. Normal renal cortical thickness. No hydronephrosis. No gross solid or cystic lesion. US/US renal BI IMPRESSION: 3 mm nonobstructing calculus, right kidney. Electronically signed by: Greg Velez MD 12/22/2024 11:32 AM EDT
--- OUTSIDE RECORDS SUMMARY | 2024-12-22 11:58 | XMS_ITS | Patient Health Record ---
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 for 1 day(s) Active Social History Tobacco Use: Social History Observation Description Date Details (start date - stop date) Never Smoker NA - NA Tobacco Use/Smoking Question Answer Notes Patient is a nonsmoker Alcohol Screen Question Answer Notes Did you have a drink containing alcohol in the p ast year? No Points 0 Interpretation Negative Problems Problem Type SNOMED Code ICD Code Onset Dates Problem Status W/U Status Risk Notes Problem [id number] Colon cancer screening (Z12.11) Active confirmed Problem [id number] Left lower quadrant pain (R10.32) Active confirmed Plan Of Treatment Future Test Test Name Order Date COLONOSCOPY 06/26/2017 Insurance Providers Payer Name Payer Address Payer Phone Subscriber Number Group Number Insured Name Patient Relationship to Insured Coverage Start Date Coverage End Date O BLUE BCBS PROFESSIONAL CLAIMS [address] [place] [address] [id number] [id number] SANTANA Self - patient is the insured Medical (General) History Medical History History ICD Code Denies [place],DM,CVA,Lung disease,renal dise ase infertility allergies endometriosis microscopic hematuria Surgical History Surgery Date(Month/Year) dilatation and curettage hysterectomy appendectomy
== END 2024-12-22 10:46 | disposition home or self-care (01) ==
LOC: HO.US 10:45
PROVIDERS: PCP Internal Medicine; Visit Provider Nurse Practitioner Family
DX: N20.0 Calculus of kidney (principal)
CPT/HCPCS: 76775

== ENCOUNTER → 2024-12-22 10:48 | Outpatient (BNV) | payer OTHER, SELFPAY | PROVIDERS: PCP Internal Medicine; Visit Provider Radiology Diagnostic Radiology | DX: N20.0 Calculus of kidney (principal) | CPT/HCPCS: 76775 ==

== ENCOUNTER 2025-01-05 11:27 | Outpatient (AMB) | payer OTHER, SELFPAY ==
--- NOTE | 2025-01-05 11:31 | A.OFFVIS_ITS ---
Intake Visit Reasons: 1yr/U/S Intake Note: Patient presents for 1 yr follow up for nephrolithiasis Imaging done : 12/22/24 Urology Medications: none Blood Thinner: none Datapower Consultant Required: No Accompanied by: Self / Same As Patient Allergies codeine (CODEINE) Allergy (Unknown, Verified 07/10/24 02:13) SEVERE HEADACHE HPI Comments Details: Maye is a pleasant female. She is a patient of Dr. SCANLON. She is seen for the following urologic conditions - nephrolithiasis Discussed imaging results Encourage fluid intake Encourage B6 and lemon water She would like to continue surveillance Nephrolithiasis Imaging - 01/15 renal ultrasound 3 mm right PFSH Medical History Osteopenia Hypercholesterolemia Migraine Surgical History Hx of appendectomy History of hysterectomy History of laparotomy Family History Father Diabetes Hypertension Skin cancer Mother Hypertension Skin cancer Brother No problems noted. Brother No problems noted. Social History Housing: House Alcohol intake: never Patient Tobacco Use Status: Never used Tobacco Tobacco use type: Cigarette e-Cigarette/Vaping Use: Never Used Second Hand Smoke Exposure: No service: No Current occupational status: employed Current occupational exposures/hazards: No Cognitive needs: No Hearing needs: No Vision needs: Yes Assessment & Plan Assessment & Plan (1) Right renal stone: Comment: February right renal calculi. CT scan July 13- Code(s): N20.0 - Calculus of kidney Category: Medical Plan Twelve month follow-up renal imaging Orders: Orders US renal BI 12 Months N20.0 - Calculus of kidney Patient Instructions: This note is constructed using voice recognition software. While every effort has been made to ensure accuracy senior product engineer errors may have been included. Imaging studies, laboratory and physical exam results were discussed and reviewed in detail. No major barriers to patient understanding were identified. An opportunity to ask questions regarding the treatment plan was provided. All questions were answered. The patient expressed understanding and agreement with the above treatment plan. The patient is aware they should contact our office by phone for worsening of their current condition or the appearance of new urologic symptoms. Compliance is encouraged with any medications and followup testing that is ordered. It is a privilege to participate in the urologic care of your patient. If you have any questions or concerns regarding treatment for the above conditions, or other urologic issues, please do not hesitate to contact me. The office telephone contact is [phone]. Sincerely, Dr Asaf Luu MD, [facility] - Urology Compassionate Specialist Care for the Genitourinary System Coding Level of Care Code Est Pt Level 3 (01849) Complex EM visit Add On G2211 Diagnoses Right renal stone N20.0
--- OUTSIDE RECORDS SUMMARY | 2025-01-05 12:49 | XMS_ITS | Patient Health Record ---
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 Name Role Phone Samy Toth MD Primary Care Provider Rodrigo Carlton Jr Unavailable Allergies Allergen (clinical drug ingredient) Drug/Non Drug [...] Problem Status W/U Status Risk Notes Problem [id number] Colon cancer screening (Z12.11) Active confirmed Problem [id number] Left lower quadrant pain (R10.32) Active confirmed Plan Of Treatment Future Test Test Name Order Date COLONOSCOPY 06/26/2017 Insurance Providers Payer Name Payer Address Payer Phone Subscriber Number Group Number Insured Name Patient Relationship to Insured Coverage Start Date Coverage End Date O BLUE BCBS PROFESSIONAL CLAIMS [address] [place] [address] [id number] 401 [address] SANTANA Self - patient is the insured Medical (General) History Medical History History ICD Code Denies [place],DM,CVA,Lung disease,renal dise ase infertility allergies endometriosis microscopic hematuria Surgical History Surgery Date(Month/Year) dilatation and curettage hysterectomy appendectomy
== END 2025-01-05 12:23 | disposition home or self-care (01) ==
LOC: HO.HUSH 11:28
PROVIDERS: PCP Internal Medicine; Visit Provider Urology
DX: Z13.9 Encounter for screening, unspecified (principal); N20.0 Calculus of kidney
CPT/HCPCS: 99213

== ENCOUNTER → 2025-01-05 11:27 | Outpatient (BNVA) | payer OTHER, SELFPAY | PROVIDERS: PCP Internal Medicine; Visit Provider Urology | DX: N20.0 Calculus of kidney (principal) | CPT/HCPCS: 81003 ==

== ENCOUNTER 2025-01-11 09:49 | Outpatient (AMB) | payer OTHER, SELFPAY ==
[2025-01-11 10:23] VITALS: BP 138/86; PULSE 67; TEMP 36.7; O2SAT 100; BMI 21.8
--- NOTE | 2025-01-11 10:23 | AM.OFFWIN_ITS ---
Intake Vital Signs 01/11/25 10:23 Height 5 ft 6 in Weight 135 lb BMI 21.8 BP 138/86 Blood Pressure Location Lt brachial Position Sitting Pulse 67 Pulse Source Pulse Oximeter Temp 98.0 F Temp Source Oral Pulse Oximetry (%) 100 Oxygen Delivery Method Room Air Intake Visit Reasons: EP-lrt side lower back pain Intake Note: presents with right sided low back pain for a week, difficulty sleeping. pt reports h/o of kidney stone on RT kidney, ultrasound done 12/22/24 [facility] [place] Patient Tobacco Use Status: Never used Tobacco Allergies codeine (CODEINE) Allergy (Unknown, Verified 01/11/25 10:25) SEVERE HEADACHE Do you need a note to return to daycare/school/sports/work: No HPI EP-lrt side lower back pain HPI Details This is a 64-year-old female patient who presents to the walk-in clinic today with report of right-sided lower back pain, with occasional radiation into her right hip/upper buttock area. This started following a significant amount of walking after going to a local multi-day [employer] [place] about 1 week ago. Over the last week, she has been resting and applying heat/ice. She states that heat/ice application somewhat reduces the pain, however it is constant, and worsens at night. She states that last night, she took an Advil before bed, and was able to rest a little bit more comfortably. History of nephrolithiasis. Followed by urology for this. Saw Dr. Luu last week on 01/05. Had a recent ultrasound which showed a stable, 3 mm nonobstructing calculus in the right kidney. Patient denies any urinary symptoms at all. Follow up with Urology in 1 year. She denies any radiation of pain down her leg, or numbness/tingling. Denies any saddle anesthesia. [facility] Medical History Osteopenia Hypercholesterolemia Migraine Surgical History Hx of appendectomy History of hysterectomy History of laparotomy Family History Father Diabetes Hypertension Skin cancer Mother Hypertension Skin cancer Brother No problems noted. Brother No problems noted. Social History Housing: House Alcohol intake: never Patient Tobacco Use Status: Never used Tobacco Tobacco use type: Cigarette e-Cigarette/Vaping Use: Never Used Second Hand Smoke Exposure: No service: No Current occupational status: employed Current occupational exposures/hazards: No Cognitive needs: No Hearing needs: No Vision needs: Yes Review of Systems Const All systems reviewed & are unremarkable except as noted in HPI and below Physical Exam Vital Signs: Last Vital Signs Temp 98.0 F 01/11/25 10:23 Pulse 67 01/11/25 10:23 BP 138/86 01/11/25 10:23 Pulse Ox 100 01/11/25 10:23 Oxygen Delivery Method Room Air 01/11/25 10:23 BMI result Body Mass Index 21.8 Const General: cooperative, healthy appearing, comfortable and no acute distress HEENT Head: Yes normal to inspection Resp Effort & Inspection: normal respiratory effort General: Yes no CVA tenderness Back/Spine/Pelvis Other: Report of pain over right SI joint and right L4/5, L5/S1 facets, however I am unable to reproduce pain with palpation. Positive facet loading right lower lumbar area. Negative straight leg raise. Hip exam normal. Back: no CVA tenderness Skin General skin exam: no rashes or lesions noted Extrem General: Yes capillary refill normal and Yes no clubbing, cyanosis or edema Psych Appearance: grossly normal Mental Status: mental status grossly normal Speech and movement: Normal speech and movement present Assessment & Plan Assessment & Plan (1) Inflammation of right sacroiliac joint: Code(s): M46.1 - Sacroiliitis, not elsewhere classified Plan: Symptoms consistent with right sacroiliac joint inflammation, versus right lower lumbar facet arthropathy. I have printed patient out some sacroiliac joint stretches/exercises to perform at home. I have also advised she take Advil PRN over the next several days, and I will also prescribe a low dose muscle relaxer to take at bedtime. She can continue to apply ice/heat as needed. I advised she not do any prolonged standing/walking over the next couple of days. We discussed trying these conservative measures first, and if she does not improve with treatment, she can return to the clinic or PCP for further evaluation. We reviewed indications, use, possible side effects of medication. All questions were answered and patient verbalizes understanding and agrees to plan. Medications: New tizanidine Take 1 capsule at bedtime as needed for lower back muscle spasm/pain. Do not take Fioricet concurrently with medication. 2 mg PO BEDTIME PRN 5 caps 0RF muscle spasticity 5 days M46.1 - Sacroiliitis, not elsewhere classified Coding Level of Care Code Est Pt Level 4 (08360) Diagnoses Inflammation of right sacroiliac joint M46.1
--- OUTSIDE RECORDS SUMMARY | 2025-01-11 10:28 | XMS_ITS | Patient Health Record ---
Author Organization [facility] Address [address] [place] [address] Care Team Providers Care Computer Technology Instructor Name Role Phone Samy Toth MD Primary [...] Problem Status W/U Status Risk Notes Problem [id number] Colon cancer screening (Z12.11) Active confirmed Problem 108227829 Left lower quadrant pain (R10.32) Active confirmed Plan Of Treatment Future Test Test Name Order Date COLONOSCOPY 06/26/2017 Insurance Providers Payer Name Payer Address Payer Phone Subscriber Number Group Number Insured Name Patient Relationship to Insured Coverage Start Date Coverage End Date O BLUE BCBS PROFESSIONAL CLAIMS [address] [place] [address] [id number] S[address]ANA Self - patient is the insured Medical (General) History Medical History History ICD Code Denies [place],DM,CVA,Lung disease,renal dise ase infertility allergies endometriosis microscopic hematuria Surgical History Surgery Date(Month/Year) dilatation and curettage hysterectomy appendectomy
== END 2025-01-11 11:39 | disposition home or self-care (01) ==
PROVIDERS: PCP Internal Medicine; Visit Provider Nurse Practitioner Family
DX: M46.1 Sacroiliitis, not elsewhere classified (principal)

== ENCOUNTER 2025-05-11 09:39 | Outpatient (REF) | payer OTHER, SELFPAY ==
--- NOTE | ~2025-05-11 | MM_ITS ---
EXAMINATION: DXA BONE DENSITY AXIAL HISTORY: M81.0 - Age-related osteoporosis without current pathological fracture TECHNIQUE: Shopsy Dual energy absorptiometry (DEXA) of the lumbar spine, total left hip, and femoral neck was performed. COMPARISON: Comparison is made with the prior examinations post recent dated April 2023. FINDINGS: The bone mineral density of the lumbar spine is 0.901 g/cm2, corresponding to a T-score of -2.3, and a Z-score of -0.8. This is indicative of osteopenia. This represents a BMD change of 14.3% compared to the prior exam. This is statistically significant. The bone mineral density of the left total hip is 0.778 g/cm2, corresponding to a T-score of -1.8, and a Z-score of -0.7. This is indicative of osteopenia. This represents a BMD change of 2.6% compared to the prior exam. This is not statistically significant. The bone mineral density of the left femoral neck is 0.864 g/cm2, corresponding to a T-score of -1.3, and a Z-score of 0.2. This is indicative of osteopenia. This represents a BMD change of 6.4% compared to the prior exam. This is statistically significant. FRACTURE RISK: The FRAX index suggests a ten year probability of major osteoporotic fracture of 14.8%, and of hip fracture 0.7%. MM/XR DEXA axial skeleton IMPRESSION: Based on bone mineral density, and according to World Health Organization (WHO) criteria, the diagnosis is consistent with osteopenia based on lowest T score of -2.3 in the spine. Bone mineral density appears improved from prior exam. Treatment Recommendations: NOF guidelines recommend consideration for treatment in postmenopausal women and men age 50 and older presenting with the following: -A hip or vertebral (clinical or morphometric) fracture. -T-score less than or equal to -2.5 at the femoral neck or spine after appropriate evaluation to exclude secondary causes. -Low bone mass at the hip or spine and a 10-year fracture probability by FRAX of greater than or equal to 3% for hip fracture or greater than or equal to 20% for major osteoporotic fracture based on the [place] adapted WHO algorithm. Other Recommendations: All treatment decisions require clinical judgment and consideration of individual patient factors, including patient preferences, comorbidities, previous drug use, risk factors not captured in the FRAX model (e.g. frailty, falls, vitamin D deficiency, increased bone turnover, interval significant decline in bone density) and possible under or overestimation of fracture risk by FRAX. Additional medical evaluation for secondary cause of low bone mineral density may be appropriate. FUTURE SCAN RECOMMENDATION: People with diagnosed cases of osteoporosis or at high risk for fracture should have regular bone mineral density tests. For patients eligible for Medicare, routine testing is allowed once every 2 years. The testing frequency can be increased to one year for patients who have rapidly progressing disease, those who are receiving or discontinuing medical therapy to restore bone mass, or have additional risk factors. Statistically, 68% of repeat scans fall within 1 SD (+/- 0.010 g/cm2 for AP spine L1-L4) and 1 SD (+/- 0.012 g/cm2 for femur total) FRAX is a trademark of the [employer] [facility] [employer], a World Health Organization (WHO) Collaborating Center. Electronically signed by: Macey Delgado MD 05/11/2025 11:01 AM CORDELIA
== END 2025-05-11 09:40 | disposition home or self-care (01) ==
LOC: HO.MAMMO 09:39
PROVIDERS: PCP Internal Medicine; Visit Provider Internal Medicine
DX: M81.0 Age-related osteoporosis without current pathological fracture (principal)
CPT/HCPCS: 77080

== ENCOUNTER → 2025-05-11 09:42 | Outpatient (BNV) | payer OTHER, SELFPAY | PROVIDERS: PCP Internal Medicine; Visit Provider Radiology Diagnostic Radiology | DX: E28.39 Other primary ovarian failure (principal) | CPT/HCPCS: 77080 ==

== ENCOUNTER 2025-05-13 07:45 | Outpatient (REF) | payer OTHER, SELFPAY ==
--- OUTSIDE RECORDS SUMMARY | 2025-05-13 07:51 | XMS_ITS | Patient Health Record ---
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 Name Role Phone Samy Toth MD Primary Care Provider Rodrigo Carlton Jr Unavailable Allergies Allergen (clinical drug ingredient) Drug/Non Drug Allergy documented on EMR Reaction Allergy Type Onset Date Status codeine Codeine Sulfate Unknown Drug Allergy A ctive Reason For Referral No Information Medications Medication SIG (Take, Route, Frequency, Duration) Notes Start Date End Date Status ZyrTEC Allergy 10 MG Tablet 1 tablet Ora lly Once a day Active Multi Vitamin/Minerals - Tablet 1 Orally QD Active Colyte with Flavor Packs 240 GM Solution Reconstituted As directed Orally Over the specified time.; Duration: 1 day(s) Active Social History Tobacco Use: Social History Observation Description Date Details (start date - stop date) Never Smoker NA - NA Social History Drugs/Alcohol: Social Info Question Answer Notes Alcohol Screen Did you have a drink containing alcohol in the past year? No Points 0 Interpretation Negative Tobacco Use: Social Info Question Answer Notes Tobacco Use/Smoking Patient is a nonsmoker Additional Details Category Social Info Options Details Miscellaneous: Marital status: Occupation: retired Problems Problem Type SNOMED Code ICD Code Onset Dates Problem Status W/U Status Risk Notes Problem Colon cancer screening (269250646) Colon cancer screening (Z12.11) Active confirmed Problem Left lower quadrant pain (811774561) Left lower quadrant pain (R10.32) Active confirmed Plan Of Treatment Future Test Test Name Order Date COLONOSCOPY 06/26/2017 Insurance Providers Payer Name Payer Address Payer Phone Subscriber Number Group Number Insured Name Patient Relationship to Insured Coverage Start Date Coverage End Date HMO BLUE BCBS PROFESSIONAL CLAIMS [address] [place] [phone] [id number] [address] SANTANA Self - patient is the insured Medical (General) History Medical History History ICD Code Denies [place],DM,CVA,Lung disease,renal dise ase infertility allergies endometriosis microscopic hematuria Surgical History Surgery Date(Month/Year) dilatation and curettage hysterectomy appendectomy
[2025-05-13 11:04] LABS: MANUAL DIFF FLAG NO
[2025-05-13 11:22] LABS: Hematocrit 36.7 % (37.0-47.0); Hemoglobin 12.0 g/dl (12.0-16.0); Imm Gran Abs Auto 0.01 X10*3/uL (0.00-0.03); Imm Gran Pct Auto 0.2 % (0.0-0.4); Lymphocytes Absolute Auto 1.1 X10*3/uL (1.2-4.9); Mean Corpuscular HGB Conc 32.7 g/dl (31.0-35.0); Mean Corpuscular Hemoglobin 29.3 pg (27.0-33.0); Mean Corpuscular Volume 89.7 fL (80.0-98.0); NRBC Abs Auto 0.000 X10*3/uL (0.0-0.012); NRBC Pct Auto 0.0 /100WBC (0.0-0.2); Platelet Count 210 X10*3/uL (160-400); Red Blood Count 4.09 X10*6/uL (4.20-5.50); White Blood Count 4.2 X10*3/uL (4.8-10.8)
[2025-05-13 11:26] LABS: Appearance Urine Clear; Glucose Urine UA Negative (Negative); PH 6.5 (5.0-9.0); Specific Gravity - Urine <= 1.005 (1.005-1.025); UMIC TRIGGER UA YES
[2025-05-13 11:48] LABS: Alanine Aminotransferase 14 U/L (0-31); Albumin Level 4.2 g/dL (3.5-5.0); Alkaline Phosphatase 44 U/L (39-117); Anion Gap 10 (12-20); Aspartate Amino Transferase 27 U/L (5-31); Blood Urea Nitrogen 12 mg/dL (9-16); Calcium 8.7 mg/dL (8.4-10.2); Carbon Dioxide 26 mmol/L (22-29); Chloride 103 mmol/L (96-108); Cholesterol 197 mg/dL (<200); Estimated Glomerular Filt Rate > 60; HDL Cholesterol 47 mg/dL (>40); Magnesium 1.9 mg/dL (1.6-2.6); Potassium 3.9 mmol/L (3.3-5.1); Sodium 135 mmol/L (135-145); Total Protein 6.7 g/dL (6.5-8.0); Triglycerides 80 mg/dL (<150)
[2025-05-13 12:05] LABS: Free T4 (Free Thyroxine) 1.04 ng/dL (0.71-1.85)
[2025-05-13 12:29] LABS: Folate 15.0 ng/mL (> or = 4.0); Vitamin B12 688 pg/mL (200-900)
== END 2025-05-13 07:46 | disposition home or self-care (01) ==
LOC: HO.WFDLDS 07:45
PROVIDERS: Visit Provider Internal Medicine
DX: N20.0 Calculus of kidney (principal); E78.00 Pure hypercholesterolemia, unspecified; Z13.21 Encounter for screening for nutritional disorder
CPT/HCPCS: 36415; 80053; 80061; 81001; 82306; 82607; 82746; 83735; 84439; 85025; 88112

== ENCOUNTER 2025-05-24 08:29 | Outpatient (AMB) | payer OTHER, SELFPAY ==
[2025-05-24 08:41] VITALS: BP 128/72; PULSE 73; O2SAT 99; BMI 21.5
--- NOTE | 2025-05-24 08:41 | A.OFFPC_ITS ---
Vital Signs 05/24/25 08:41 Height 5 ft 6 in Weight 133 lb BMI 21.5 BP 128/72 Blood Pressure Location Lt brachial Position Sitting Pulse 73 Pulse Source Pulse Oximeter Pulse Oximetry (%) 99 Oxygen Delivery Method Room Air Intake Visit Reasons: Annual PE Allergies codeine (CODEINE) Allergy (Unknown, Verified 05/24/25 08:42) SEVERE HEADACHE Medication List - Last Reconciled 05/24/25 by Samy Toth MD alendronate (Fosamax) 70 mg PO QWEEK 30 days lggbaii-qjkjwbzbepjmg-lyqketlz 250-250-65 mg (Excedrin Migraine) 1 tab PO Q4-6H PRN cetirizine (Zyrtec) 10 mg PO DAILY PRN ibuprofen (Advil) 200 mg PO Q6H PRN multivitamin,tx-minerals 1 tab PO DAILY pyridoxine (vitamin B6) 50 mg PO DAILY turmeric mg PO Tobacco use date assessed: 07/02/24 Dental Screening Dental Screen Date: 07/02/24 HPI HPI Comments History of Present Illness Details History of Present Illness The patient is a 64-year-old individual presenting for an annual physical examination. The patient has a past medical history of migraine, hypercholesterolemia, osteoporosis, and right nephrolithiasis. The patient's last colonoscopy was in 2017 and mammogram was in November 2024. The patient experienced a recurrent foot infection that began in the fall of the previous year, presenting with vesicles and pus, and was very itchy. Initial treatment with an antibiotic at an urgent care center resolved the pus but the infection recurred every six weeks. Fungal tests were negative. The infection ultimately resolved with a different, strong antibiotic and has not returned. The patient also saw a mechanical engineering manager for this issue, who diagnosed the patient with plantar fasciitis in the heel. The patient has a history of right nephrolithiasis, with stones found in 2021 and 2022, though a CT scan in June 2023 was negative. A renal ultrasound on January 15 showed a 3 mm stone, which is currently being monitored. Regarding bone health, a bone density scan in April 2025 showed a 14% impro vement in the spine, and the patient's condition is now classified as osteopenia, not osteoporosis. The patient has been on alendronate weekly for three years. Blood work from April 2025 revealed chronic mild leukopenia, normal electrolytes and renal function, with an LDL cholesterol of 134. The patient's calcium level is 8.7. The patient's medications include alendronate weekly, multivitamin, vitamin B6, turmeric, and PRN use of a migraine medication, Zyrtec, and Advil. The patient has an allergy to codeine. The patient had a total hysterectomy. Family history is positive for skin cancer in both parents. There is no family history of heart attacks. Health Maintenance Orders were placed for fasting labs and a microscopic urinalysis for May of the following year. An order was placed for a screening breast ultrasound for May 2026, as requested by the patient due to dense breast tissue. An insurance referral was provided for the patient's annual dermatology visit. Vaccination status was reviewed; the patient is up-to-date with shingles, tetanus, and RSV, with a pneumonia vaccine due in three years. Advised to continue with [employer] visits every two years. A digital rectal exam was performed for colorectal cancer screening, which was negative for occult blood. The patient was counseled on continuing a healthy lifestyle, including hydration, diet, and exercise. Social History - Substance Use: The patient is not a sm oker, having only had a few cigarettes in the patient's entire life. - Exercise: The patient engages in [employer]. - Nutritional Intake: The patient does n ot drink milk or consume dairy but does eat cheese. - Weight Management: The patient is plan andrei to work on losing weight, with a goal of returning to 125 pounds. Results - Labs (April 2025): - CBC: Normal with mild leukopenia, whic h is a chronic finding. No anemia, platelet count normal. - CMP: Electrolytes, renal function, and liver function are normal. Calcium 8.7. Blood sugar is normal. - Lipid Panel: LDL cholesterol is 134. - Vitamins: B12, folic acid, and vitamin D levels are good. - Thyroid: TSH was not resulted. - Tests and Diagnostics: - Bone Density Scan (April 2025): Dian wed a 14% improvement in the spine density. Current diagnosis is osteopenia. - Renal Ultrasound (January 15, year unspec ified): Revealed a 3 mm right kidney stone. - CT Scan (June 2023): Negative for n ephrolithiasis. - Foot lesion culture/test: Negative for fungal infection. [facility] Medical History Osteopenia Hypercholesterolemia Migraine Surgical History Hx of appendectomy History of hysterectomy History of laparotomy Family History Father Diabetes Hypertension Skin cancer Mother Hypertension Skin cancer Brother No problems noted. Brother No problems noted. Social History Housing: House Alcohol intake: never Patient Tobacco Use Status: Never used Tobacco Tobacco use type: Cigarette e-Cigarette/Vaping Use: Never Used Second Hand Smoke Exposure: No service: No Current occupational status: employed Current occupational exposures/hazards: No Cognitive needs: No Hearing needs: No Vision needs: Yes Questionnaire PHQ-9 Over the last 2 weeks, how often have you been bothered by any of the following problems? 1. Little interest or pleasure in doing things: not at all 2. Feeling down, depressed, or hopeless: not at all 3. Trouble falling or staying asleep, or sleeping too much: not at all 4. Feeling tired or having little energy: not at all 5. Poor appetite or overeating: not at all 6. Feeling bad about yourself - or that you are a failure or have let yourself or your family down: not at all 7. Trouble concentrating on things, such as reading the newspaper or watching television: not at all 8. Moving or speaking so slowly that other people could have noticed. Or the opposite - being so fidgety or restless that you have been moving around a lot more than usual: not at all 9. Thoughts that you would be better off or of hurting yourself in some way: not at all Total score: 0 Depression Screening Interpretation: Negative Depression Screening Done: Yes Source: Developed by Drs. Alverto Begum, Flor Welch, Thang Richter and colleagues, with an educational eileen from [employer]. Thrive Questionnaire Date Thrive assessed: 05/17/25 I am a: Patient What is your living situation today?: I have a steady place to live Within the past 12 months, did the food you bought not last and you didn't have the money to get more?: Never true Within the past 12 months, did you worry whether your food would run out before you got money to buy more?: Never true Do you have trouble paying for medicines?: No Do you have trouble getting transportation to medical appointments?: No Do you have trouble paying your heating and electricity bill?: No Do you have trouble taking care of your child, family member or friend?: No Do you have trouble with day-to-day activities such as bathing, preparing meals, shopping, managing finances, etc.?: No Are you currently unemployed and looking for a job?: No Are you interested in more education?: No Please select the resources that you would like help with: None Currently or been in a relationship where the following occur: No concerns reported THRIVE Score: 0 AUDIT C Alcohol Use Questionnaire (AUDIT-C) 1. How often do you have a drink containing alcohol?: Never 3. How often do you have six or more drinks on one occasion?: Never Total Score: 0 BIGG-7 AMB Questionnaire BIGG-7 Date BIGG - 7 assessed: 05/24/25 Feeling nervous, anxious, or on edge: 0 = Not at all Not being able to stop or control worryin = Not at all Worrying too much about different things: 0 = Not at all Trouble relaxin = Not at all Being so restless that it is hard to sit still: 0 = Not at all Becoming easily annoyed or irritable: 0 = Not at all Feeling afraid as if something awful might happen: 0 = Not at all Total BIGG-7 score (0-4 normal; 5-9 mild; 10-14 moderate; 15-21 severe): 0 Source: Developed by Drs. Alverto Begum, Flor Welch, Thang Richter and colleagues, with an educational eileen from [employer]. Review of Systems Narrative Review of Systems - General: Denies fever. - HEENT: Reports an occasional feeling of something in one ear, but hearing is fine and nobody has complained about the patient's hearing. Denies problems with swallowing. - Cardiovascular: Denies chest pain, heaviness, or discomfort. - Respiratory: Denies waking up short of breath. - Gastrointestinal: Reports good bowel movements. Denies nausea or vomiting. - Genitourinary: Reports nocturia 0-2 times per night. - Musculoskeletal: Denies current back pain. - Skin: Reports a history of a recurrent, itchy, vesiculopustular lesion on the foot, which has resolved. - Neurological: Denies passing out or feeling dizzy. Const Denies poor appetite and Denies weakness Eyes Denies no additional complaints ENT Reports Normal hearing present, Denies dizziness, Denies nasal congestion, Denies tinnitus and Denies sore throat Card Denies chest pain, Denies syncope, Denies rapid heart rate and Denies dyspnea Resp Denies cough and Denies dyspnea GI Denies change in stool character, Reports constipation, Denies diarrhea, Denies nausea and Denies vomiting Denies urinary frequency, Denies difficulty voiding and Denies dysuria Neuro Reports Normal hearing present, Denies confusion, Denies dizziness, Denies syncope and Denies weakness Psych Denies confusion Physical exam (Primary Care) Vital Signs: Last Vital Signs Pulse 73 05/24/25 08:41 BP 128/72 05/24/25 08:41 Pulse Ox 99 05/24/25 08:41 Oxygen Delivery Method Room Air 05/24/25 08:41 BMI result Body Mass Index 21.5 Tobacco/Smoking Status: Tobacco use Status Tobacco use date assessed 07/02/24 05/24/25 08:48 Patient Tobacco Use Status Never used Tobacco 05/24/25 08:48 Tobacco use type Cigarette 05/24/25 08:48 e-Cigarette/Vaping Use Never Used 05/24/25 08:48 PHQ-9: PHQ-9 Score PHQ-9: Total score 0 05/24/25 08:54 Depression Screening Interpretation: Negative Thrive Assessment: Date of Thrive Assessment Date Thrive assessed 05/17/25 05/24/25 08:48 Currently or been in a relationship where the following occur: No concerns reported Narrative Physical Exam General: Cooperative, healthy appearing, comfortable, no acute distress and well developed Orientation: Patient oriented x3 Limitations: No limitations Head: Normal to inspection Ears: Hearing grossly normal bilaterally, although patient sometimes feels like there's something in the ear, but it's very clean Nose: Normal external nose present Face and sinus: Normal facial exam Eyes: Appearance normal, both eyes and all related structures Neck: Normal visual inspection and Yes full ROM Respiratory: Normal respiratory effort and able to speak in complete sentences. Clear to auscultation bilaterally Cardiovascular: Regular rate and rhythm. Normal S1 and S2 GI: Normal to inspection. Soft to palpation and nontender Skin: No rashes or lesions noted Neuro: Patient oriented x3 Extremities: Normal to inspection, patient has history of plantar fasciitis and foot infection which has resolved Const General: No confusion Orientation/consciousness: No confusion HENMT Head: Yes normocephalic Ears: external ears normal and TM's normal bilaterally Face and sinus: Yes normal facial exam Mouth: moist mucous membranes Throat: Yes tonsils normal Eyes Conjunctivae: conjunctivae normal Pupils: Equal, round and reactive pupils present and Pupil accommodation reflex normal Direct Ophthalmoscopy: normal light reflex Neck Neck: No lymphadenopathy Thyroid: Thyroid normal Chest Chest palpation & inspection: normal inspection of the chest Resp Effort & Inspection: normal respiratory effort and no audible wheezes Auscultation: clear to auscultation bilaterally, no crackles, no wheezes and lung sounds not diminished Cardio Rate: regular rate Rhythm: regular rhythm Peripheral pulses: radial pulses present and dorsalis pedis present GI Other: guaiac negativre Palpation (GI): no masses Auscultation: normal bowel sounds and normoactive bowel sounds Skin General skin exam: no rashes or lesions noted Rashes: no rashes Neuro General: No confusion Cranial nerves: Yes Equal, round and reactive pupils present and Yes Normal hearing present Cognition (Neuro): normal cognition Gait exam (Neuro): Normal gait present Motor exam (neuro): 5/5 motor strength present throughout Deep tendon reflexes (DTR's): Right brachioradialis reflex intensity grade: 2+, Left brachioradialis reflex intensity grade: 2+, Right patellar reflex intensity grade: 2+ and Left patellar reflex intensity grade: 2+ Extrem General: No edema Coding Level of Care Code Est Pt Prev Care 40-64y(91094) Diagnoses Annual physical exam Z00.00 Right renal stone N20.0 Hypercholesterolemia E78.00 Age related osteoporosis, unspecified pathological fracture presence M81.0 Osteoporosis type: age-related Presence of current pathological fracture: unspecified Skin exam, screening for cancer Z12.83 Assessment & Plan Assessment & Plan (1) Annual physical exam: Code(s): Z00.00 - Encounter for general adult medical examination without abnormal findings Category: Medical Plan: Patient is advised to eat healthy, keep well hydrated, keep active and have adequate sleep. (2) Right renal stone: Comment: February right renal calculi. CT scan July 13- Code(s): N20.0 - Calculus of kidney Category: Medical Plan: Keep well hydrated (3) Hypercholesterolemia: Code(s): E78.00 - Pure hypercholesterolemia, unspecified Category: Medical Plan: Avoid fried foods, chicken skin, eggs, butter margarine, pastries and meat. Be it pork or beef they have a lot of cholesterol (4) Osteoporosis: Comment: April osteopenia Code(s): M81.0 - Age-related osteoporosis without current pathological fracture Category: Medical Qualifiers: Osteoporosis type: age-related Presence of current pathological fracture: unspecified Qualified Code(s): M81.0 - Age-related osteoporosis without current pathological fracture Plan: Improvement of the spine bone density, on alendronate (5) Skin exam, screening for cancer: Code(s): Z12.83 - Encounter for screening for malignant neoplasm of skin Category: Medical Plan Plan Patient was informed and verbally consented to the use of an ambient scribe for clinic note documentation during this visit. 1. Osteopenia The patient's bone density showed a 14% improvement in the spine, upgrading the diagnosis from osteoporosis to osteopenia. The patient will continue weekly alendronate. A discussion was held regarding a potential drug holiday after five years of treatment, with the decision to be guided by the results of the next bone density scan scheduled for April 2027. Given the patient's low-normal calcium level (8.7) and history of kidney stones, it was recommended to prioritize dietary sources of calcium over supplements, as pills may not provide benefit and could increase stone risk. 2. Hypercholesterolemia The patient's LDL cholesterol is borderline high at 134. The patient expressed concern about not being on a statin, but given the absence of other risk factors such as high blood sugar or a family history of heart attacks, statin therapy is not indicated at this time. The patient is encouraged to continue lifestyle modifications, including diet and exercise, to manage cholesterol levels. Cholesterol levels will be re-evaluated with fasting labs next year. 3. Right Nephrolithiasis The patient has a known 3 mm right kidney stone which is being monitored. The patient is advised to maintain good hydration to help prevent stone formation. A microscopic urinalysis will be ordered with next year's labs to monitor. Discussion Notes I had a detailed discussion with the patient regarding the patient's overall health and recent test results. We reviewed the bone density scan, which showed a significant 14% improvement in the spine, and I informed the patient that the diagnosis is now osteopenia. I explained that we would continue alendronate and re-evaluate the need for a drug holiday after five years of total use, pending results of the next scan in 2026. We discussed the patient's low-normal calcium levels and concerns about supplementation. I advised that current evidence does not strongly support calcium pills for bone health and noted the potential increased risk of kidney stones, recommending instead a focus on dietary calcium sources. Regarding the borderline high LDL cholesterol of 134, I explained that I do not recommend starting a statin at this time because the patient lacks other major cardiovascular risk factors like high blood sugar or a family history of heart attacks. I reinforced the importance of lifestyle modifications to manage cholesterol. I addressed the patient's requests for future orders and referrals, placing an order for fasting labs for next year, a breast ultrasound for 2025, and providing a referral for dermatology. The patient consented to a digital rectal exam to screen for occult gastrointestinal bleeding, which I performed, and the result was negative. I provided anticipatory guidance on continuing hydration, a healthy diet, and physical activity. Patient Instructions - Continue taking your alendronate medication once a week for your bone health. - Your recent bone density scan showed great improvement. We will check it again in 2026. - Focus on getting calcium from food sources like cheese and leafy greens, rather than taking calcium pills. - Your 'bad' cholesterol is a little high. Continue your efforts with healthy eating and exercise to help lower this number. - Drink plenty of water each day to help prevent kidney stones. - Orders have been placed for your annual fasting blood work and a urine test to be done next May. - We have put in the order for your breast ultrasound for May 2026. - Your insurance referral for your dermatology appointment has been processed. - You are up to date on your immunizations. You will be due for a pneumonia vaccine in about three years. - Your rectal exam was normal and showed no signs of bleeding. - Please continue to stay active, eat healthy, and stay hydrated. Orders: Orders Complete Blood Count Auto Diff 1 Year E78.00 - Pure hypercholesterolemia, unspecified Thyroid Stimulating Hormone 1 Year E78.00 - Pure hypercholesterolemia, unspecified UA w Microscopic 1 Year E78.00 - Pure hypercholesterolemia, unspecified Vitamin B12 and Folate 1 Year E78.00 - Pure hypercholesterolemia, unspecified Vitamin D 25-OH Total 1 Year E78.00 - Pure hypercholesterolemia, unspecified US breast RT complete 1 Year R92.30 - Dense breasts, unspecified Comprehensive Met. Panel 1 Year E78.00 - Pure hypercholesterolemia, unspecified Free T4 (Free Thyroxine) 1 Year E78.00 - Pure hypercholesterolemia, unspecified Lipid Panel 1 Year E78.00 - Pure hypercholesterolemia, unspecified US breast LT complete 1 Year R92.30 - Dense breasts, unspecified Referrals Dermatology Referral Z12.83 - Encounter for screening for malignant neoplasm of skin Urology Referral N20.0 - Calculus of kidney
--- OUTSIDE RECORDS SUMMARY | 2025-05-24 08:47 | XMS_ITS | Patient Health Record ---
Author Organization [facility] Address [address] [place] [address] Care Team Providers Care Chef Head Name Role Phone Samy Toth MD Primary [...] Status Risk Notes Problem Colon cancer screening ([id number]) Colon cancer screening (Z12.11) Active confirmed Problem Left lower quadrant pain (716672598) Left lower quadrant pain (R10.32) Active confirmed Plan Of Treatment Future Test Test Name Order Date COLONOSCOPY 06/26/2017 Insurance Providers Payer Name Payer Address Payer Phone Subscriber Number Group Number Insured Name Patient Relationship to Insured Coverage Start Date Coverage End Date HMO [employer] [id number] [place] [id number] S[address]ANA Self - patient is the insured Medical (General) History Medical History History ICD Code Denies [place],DM,CVA,Lung disease,renal dise ase infertility allergies endometriosis microscopic hematuria Surgical History Surgery Date(Month/Year) dilatation and curettage hysterectomy appendectomy
== END 2025-05-24 09:26 | disposition home or self-care (01) ==
LOC: HO.HMCH 08:29
PROVIDERS: PCP Internal Medicine; Visit Provider Internal Medicine
DX: Z00.00 Encounter for general adult medical examination without abnormal findings (principal); N20.0 Calculus of kidney; E78.00 Pure hypercholesterolemia, unspecified; M81.0 Age-related osteoporosis without current pathological fracture; Z12.83 Encounter for screening for malignant neoplasm of skin

== ENCOUNTER 2025-06-03 10:17 | Outpatient (REF) | payer OTHER, SELFPAY ==
--- NOTE | ~2025-06-03 | US_ITS ---
EXAMINATION: US SCREENING ULTRASOUND BREAST, BILATERAL CLINICAL INFORMATION: Dense breasts on mammography. Screening ultrasound. COMPARISON: Available priors on PACS. TECHNIQUE: Ultrasound is performed using grayscale imaging and color Doppler. Imaging is performed to include the four quadrants and retroareolar region. Both breasts are imaged. FINDINGS: Right breast: There is no suspicious finding by ultrasound. There is no solid mass or focal architectural abnormality. Left breast: There is no suspicious finding by ultrasound. There is no solid mass or focal architectural abnormality. US/US breast BI complete IMPRESSION: No suspicious findings on screening breast ultrasound. ASSESSMENT: Category 1: Negative RECOMMENDATION: 1 year F/U This patient's information was entered into a reminder system with a target due date for their next mammogram. Electronically signed by: Neelam Raygoza DO 06/03/2025 11:13 AM [facility]
== END 2025-06-03 10:18 | disposition home or self-care (01) ==
LOC: HO.MAMMO 10:17
PROVIDERS: PCP Internal Medicine; Visit Provider Obstetrics & Gynecology
DX: R92.2 Inconclusive mammogram (principal); R92.30 Dense breasts, unspecified
CPT/HCPCS: 76641

== ENCOUNTER → 2025-06-03 10:30 | Outpatient (BNV) | payer OTHER, SELFPAY | PROVIDERS: PCP Internal Medicine; Visit Provider Internal Medicine | DX: R92.30 Dense breasts, unspecified (principal) | CPT/HCPCS: 76641 ==